=== PATIENT | female | born 1940 | race Caucasian/White ===

== ENCOUNTER 2016-07-23 14:30 | Inpatient (IN) ==
[2016-07-23] MEDS ORDERED: DILAUDID IV ONE (15:58)
[2016-07-23] MEDS ORDERED: PHENERGAN IV ONE (15:59)
[2016-07-23] MEDS ORDERED: SODIUM CHLORIDE 0.9% INJ ONE (15:59)
--- NOTE | 2016-07-23 17:13 | CONSULTATION ---
DATE OF CONSULTATION: 07/23/2016 REASON FOR CONSULT: Left hip fracture. HISTORY OF PRESENTING ILLNESS: Ms. Roberts is a 76-year-old, white female with a history of myasthenia gravis, hypothyroidism and hypertension, who went to hand picker her garbage at the road, and as she was pulling it back, she had an injury, falling and landing on her left hip. After being brought to the emergency department, x-rays were obtained of her hip which revealed a left hip fracture. PAST MEDICAL HISTORY: 1. Myasthenia gravis. 2. Hypothyroidism. 3. Hypertension. PAST SURGICAL HISTORY: Bilateral total knee arthroplasty. FAMILY HISTORY: Noncontributory. SOCIAL HISTORY: She is . She denies using tobacco, denies using alcohol. Her daughter lives with her. REVIEW OF SYSTEMS: Ten point review of systems was performed and the patient answered negative in all except for what was mentioned above in the history of present illness, the pain in her left hip. PHYSICAL EXAMINATION: General: The patient is awake, she is laying in the bed. She answers all questions appropriately. Her daughter's at bedside to assist with answering questions. HEENT: Head is normocephalic, atraumatic. Pupils round, equal, react to light. Nares patent. Throat without exudate. Cardiac: S1-S2 auscultated. No murmur, rub or gallop is noted. Lungs: Clear to auscultation bilaterally in all lung atm. Abdomen: Soft, nontender, nondistended. Bowel sounds present in all quadrants. Genitourinary: Not examined. Neurological: Patient has good sensation to dull touch in all extremities. Cranial nerves 2-12 are grossly intact. Musculoskeletal: On physical examination, the patient has pain in the left hip with palpation of the left hip as well as pain with movement of the left lower extremity. ASSESSMENT: Left femoral neck fracture. PLAN: Discussed the injury with the patient and the fact that we would have to surgically repair it. She agrees and we plan to do a closed reduction with percutaneous pinning using cannulated screws. We will try to do that on 07/24/2016 and discussed the risks, benefits, and alternatives with the patient. The patient agreed to proceed with the surgery. The risks, benefits, and alternatives of the procedure were discussed with the patient including risk of anesthesia, bleeding, infection, damage to blood vessels, nerves, tendons, ligaments, and other imponderables were discussed and the patient agrees to proceed with the surgery at this time. Dictated by HARDEEP Nielson for Sung Srivastava MD cc: HARDEEP Nielson MD
[2016-07-23 17:17] LABS: BASO% 0.2 % (0.0-0.8); EOS# 0.06 X1000 (0.0-0.7); HEMATOCRIT 33.6 % (37.0-47.0); HEMOGLOBIN 11.3 g/dL (12.0-16.0); IMM GRAN# 0.02 X1000 (0.0-0.04); IMM GRAN% 0.3 % (0.0-0.5); LYMPH# 1.18 X1000 (1.2-3.4); LYMPH% 20.4 % (20.5-51.1); MANUAL DIFF NEEDED? NO; MCH 37.2 PG (27-31); MCHC 33.6 g/dL (33-37); MCV 110.5 FL (81-99); MONO# 0.32 X1000 (0.11-0.59); MONO% 5.5 % (1.7-9.3); MPV 10.7 FL (7.4-10.4); NEUT% 72.6 % (42.2-75.2); PLT 232 X1000 (130-400); RBC 3.04 XMIL (4.2-5.4)
[2016-07-23 17:18] LABS: URINE CULTURE NEEDED? NO; URINE MICRO REVIEW NEEDED? NO; URINE SOURCE CATH
[2016-07-23 17:31] LABS: BILIRUBIN URINE NEGATIVE (NEGATIVE); BLOOD URINE NEGATIVE (NEGATIVE); COLOR YELLOW; GLUCOSE URINE NEGATIVE (NEGATIVE); LEUKOCYTES URINE NEGATIVE (NEGATIVE); NITRITE URINE NEGATIVE (NEGATIVE); PROTEIN URINE NEGATIVE (NEGATIVE); SP GRAVITY URINE 1.015; TURBIDITY URINE CLEAR (CLEAR); UR EPITHELIAL CELLS <10 /HPF (<10); URINE BACTERIA NEGATIVE /HPF; URINE RBC <10 /HPF (<10); URINE WBC <10 /HPF (<10); UROBILINOGEN URINE 2 mg/dL (NORMAL)
--- NOTE | 2016-07-23 17:35 | Diag Imaging Result Document ---
PROCEDURE NAME: XRAY HIP UNILATERAL LT - 07/23/2016 LEFT HIP 2 VIEWS: FINDINGS: There is a fracture of the femoral neck. There is no evidence of dislocation. There are no previous studies. IMPRESSION: Left femoral neck fracture.
--- NOTE | 2016-07-23 17:35 | Diag Imaging Result Document ---
PROCEDURE NAME: KNEE 3 VIEWS LEFT - 07/23/2016 LEFT KNEE 3 VIEWS: FINDINGS: There is a knee prosthesis. There is no evidence of fracture, dislocation or prosthetic loosening. Compared to the previous study of 12/06/2011, the diffusion which was present previously has resolved. IMPRESSION: No evidence of acute bony disease.
[2016-07-23 17:36] LABS: ALBUMIN 3.7 g/dL (3.5-5.0); CALCIUM 9.4 mg/dL (8.8-10.2); POTASSIUM 3.6 mmol/L (3.5-5.1); TOTAL BILIRUBIN 0.66 mg/dL (0.20-1.00); TOTAL PROTEIN 6.3 g/dL (6.3-8.3)
--- NOTE | 2016-07-23 17:36 | Diag Imaging Result Document ---
PROCEDURE NAME: CHEST-1 VIEW - 07/23/2016 AP SUPINE CHEST PORTABLE AT 15:47 HOURS: FINDINGS: The aorta is calcified and tortuous. The heart size and pulmonary vascularity are within normal limits. There is no evidence of acute cardiac or pulmonary disease. There are no previous studies. IMPRESSION: No evidence of acute disease.
--- NOTE | 2016-07-23 18:00 | HISTORY AND PHYSICAL ---
HISTORY OF PRESENT ILLNESS: Ms. Roberts was trying to get her trash can back from the curb and she fell and struck her left hip, and by report it looks like a fracture of the left hip. I have not seen the x-ray, just report. So a good deal of pain from her left knee to her left hip. Denies any loss of consciousness. Denies any hard blow to her head. PAST MEDICAL HISTORY: She has myasthenia gravis and she takes medication every day. She also has a history gastroesophageal reflux and osteoarthritis and hypothyroidism. PAST SURGICAL HISTORY: She has had gastric bypass surgery. She has had both knees replaced. She has had back surgery. I think she has had a cholecystectomy by report. ALLERGIES: No known drug allergies other than penicillin. She is not sure what that causes. REVIEW OF SYSTEMS: General: No weight gain or loss. No fever or chills. She has been having trouble keeping weight on. She lost a lot of weight after her gastric bypass surgery and had suffered from some peritonitis, required some more surgery, so she has been about 130 pounds for quite some time. Had been ambulating and very independent. HEENT: Unremarkable. Respiratory: No increased work of breathing or dyspnea. Cardiovascular: No chest pain or tachy palpitation. GI/: No gross hematuria or dysuria. Musculoskeletal/Neurologic: No significant complaints. Endocrinologic/Hematologic: No significant history. FAMILY HISTORY: Noncontributory. Physical Examination: Vital Signs: Temperature 99.0 degrees, pulse 67, respiration is 19, blood pressure 132/55. O2 saturations 100% on room air. HEENT: Pupils are equal, round. Lungs: Clear in all lung tam. Cardiovascular: Regular rhythm and rate without murmur or S3. Abdomen: Soft. Skin: Warm and dry. Weight: 115 pounds. Extremities: Left leg with very little deformity, but it is shorter than the right. Skin is warm and dry. Hurts to any movement. LABS: Pending at this time. Sodium 140, potassium 4.2, chloride 101, bicarb 29, BUN 21, creatinine 1.3. Blood sugar 86. Calcium 9.1, iron 97, total iron binding capacity 234. Ferritin was 110. Liver functions unremarkable. Albumin 3.7. A TSH was 0.54, T4 was 1.05, and cholesterol looked good. Note: This was review of old lab as I do not have her present lab available. This lab was in May 2016. ASSESSMENT AND PLAN: 1. Left intertrochanteric fracture by report. Need to look at the x-rays. We will consult Orthopedic. Plan to admit, give her some pain control. They have given her a little bit of Dilaudid. We will give her some fluid. 2. History of myasthenia gravis. I am going to continue her current medications. I am sure she is on Myostigmin. We need to make sure we have that and continue that treatment. 3. History of gastroesophageal reflux. Aware. 4. History of hypothyroidism. Continue Synthroid. Check T4 and TSH. Continue her present Synthroid 75 mcg a day. 5. Hypertension. Continue present medication. cc: Gume Vazquez MD
[2016-07-23] MEDS ORDERED: DILAUDID IV PRN (18:16)
[2016-07-23] MEDS ORDERED: ZOFRAN IV PRN (18:16)
[2016-07-23 18:44] LABS: INR 1.02; PROTIME 10.7 Seconds (9.2-11.7); PTT 25.9 Seconds (22.0-36.0)
[2016-07-23] MEDS ORDERED: NARCAN ONE (20:36)
[2016-07-23] MEDS: NS 1,000 ML IV SCH (20:44)
[2016-07-23] MEDS ORDERED: NARCAN IV ONE (20:47)
[2016-07-23] MEDS ORDERED: MORPHINE IV ONE (21:05)
[2016-07-23] MEDS: TYLENOL PO PRN (21:27)
[2016-07-23] MEDS: CARAFATE PO SCH (22:30)
[2016-07-24] MEDS: MORPHINE IV PRN ×2 (01:23→08:04)
--- NOTE | 2016-07-24 05:46 | EKG Report ---
Test Performed on : 07/23/2016 4:51:05 PM Test Reason : pre-op Blood Pressure : / mmHG Vent. Rate : 101 BPM Atrial Rate : 101 BPM P-R Int : 170 ms QRS Dur : 138 ms QT Int : 376 ms P-R-T Axes : 068 -44 099 degrees QTc Int : 487 ms Sinus tachycardia. Left axis deviation Left bundle branch block Abnormal ECG When compared with ECG of 16-JUL-2009 11:50, Left bundle branch block is now present Unconfirmed Result
[2016-07-24 06:09] LABS: EOS# 0.03 X1000 (0.0-0.7); EOS% 0.8 % (0.0-10.0); HEMATOCRIT 29.2 % (37.0-47.0); HEMOGLOBIN 9.7 g/dL (12.0-16.0); LYMPH# 0.76 X1000 (1.2-3.4); LYMPH% 21.4 % (20.5-51.1); MANUAL DIFF NEEDED? YES; MCH 36.7 PG (27-31); MCHC 33.2 g/dL (33-37); MCV 110.6 FL (81-99); MONO# 0.24 X1000 (0.11-0.59); MONO% 6.8 % (1.7-9.3); MPV 10.6 FL (7.4-10.4); PLT 196 X1000 (130-400); RBC 2.64 XMIL (4.2-5.4)
[2016-07-24 06:27] LABS: CALCIUM 8.4 mg/dL (8.8-10.2); MAGNESIUM 1.6 mg/dL (1.5-2.7); POTASSIUM 4.5 mmol/L (3.5-5.1); TOTAL BILIRUBIN 0.68 mg/dL (0.20-1.00); TOTAL PROTEIN 5.4 g/dL (6.3-8.3)
[2016-07-24] MEDS: NS 1,000 ML IV SCH ×2 (08:05→15:36)
[2016-07-24] MEDS: IMURAN PO SCH ×2 (08:13→21:30)
[2016-07-24] MEDS: TYLENOL PO PRN ×2 (08:13→15:26)
[2016-07-24] MEDS ORDERED: SYNTHROID PO SCH (09:00)
--- NOTE | 2016-07-24 09:56 | PROGRESS NOTE ---
DATE: 07/24/2016 SUBJECTIVE: She is awake and alert. She said the morphine is working much better for her. With the Dilaudid, they had to give her a little Narcan; it was too strong, last night. Breathing comfortably. No sign of distress. OBJECTIVE: Vital Signs: Afebrile, temperature 98.7 degrees, pulse 64, respirations 16, blood pressure 160/69. HEENT: Pupils are equal, round. Lungs: Clear in all lung tam. Cardiovascular: Regular rate without murmur or S3. Abdomen: Soft. Skin: Warm and dry. URINE OUTPUT: Above 1200 mL. LABORATORY DATA: Reviewed labs from yesterday, hematocrit 29, hemoglobin was 9.7, platelet count 196,000. White blood cell count 3550. Sodium 139, potassium 4.5, chloride 102, bicarb 26, BUN 24 creatinine 1.0. Liver functions unremarkable. IMAGING STUDIES: Chest x-ray, no evidence of acute disease. Hip x-ray, left femoral neck fracture. Knee x-ray, no evidence acute bony injury. ASSESSMENT AND PLAN: 1. Left intertrochanteric hip fracture. Plan is for surgery today, orthopedic. She appears comfortable. 2. History of myasthenia gravis. Make sure she is on her medication. 3. History of gastroesophageal reflux. Aware. 4. History of hypothyroidism, appears to be euthyroid. 5. History of hypertension. PLAN: She has been started back on her home medications. She gets azathioprine or Imuran 50 mg b.i.d., and she takes that for myasthenia gravis. Getting fluid at 85 mL an hour. Losartan 1 a day. Synthroid 75 mcg daily. Her losartan she takes 50/12.5 one a day. cc: Gume Vazquez MD
[2016-07-24] MEDS ORDERED: KEFZOL 1 GM/D5W 1 GM/50 ML IVPB ONE (12:17)
[2016-07-24] MEDS ORDERED: VERSED ONE (13:24)
[2016-07-24] MEDS ORDERED: DIPRIVAN 1% ONE (13:25)
[2016-07-24] MEDS ORDERED: XYLOCAINE-MPF 2% ONE (14:37)
[2016-07-24] MEDS ORDERED: ANESTHESIA PB SET 88 IN 5742 ONE (14:37)
[2016-07-24] MEDS ORDERED: EXTENSION SET 32 IN 4522 ONE (14:37)
[2016-07-24] MEDS ORDERED: LR 1,000 ML ONE (14:37)
--- NOTE | 2016-07-24 15:22 | OPERATIVE NOTE ---
PROCEDURE DATE: 07/23/2016 PREOP DIAGNOSIS: Impacted left femoral neck fracture. POSTOPERATIVE DIAGNOSIS: Impacted left femoral neck fracture. PROCEDURE: Percutaneous pinning, left hip. SURGEON: Sung Srivastava MD. FEEDER SWITCHBOARD OPERATOR: HARDEEP Nielson. ANESTHESIA: Spinal. COMPLICATIONS: None. PROCEDURE IN DETAIL: This 76-year-old female presents for surgical pinning of the left hip. Risks, benefits, and no guarantees were discussed and patient is willing to proceed. She was taken the operating room for fixation of the hip as noted. She was transferred the [facility] after successful spinal. The left hip was prepped and draped in usual sterile fashion. A time- out was taken to confirm operative site, procedure, and patient. Under fluoroscopic guidance, a 1 inch incision was made opposite the lesser trochanter along the lateral thigh. Fluoroscopic guidance was then used to place three 7.3 cannulated screws through the lateral cortex and up the femoral neck and into the central aspect of the femoral head. These were then replaced with three 80 length, partially threaded 7.3 cancellous screws. All 3 had secure fixation in the bone. The guidewire was removed and the C-arm used to verify accurate fracture reduction and hardware placement without joint penetration. The wound was irrigated and closed in layers with 2-0 Vicryl and skin conchis. Sterile dressings completed the closure and the patient was recovered from anesthesia and transferred to the recovery room in stable condition. No intraoperative complications were noted. Instrument count and sponge count was correct at the time of closure. cc: Sung Srivastava MD
[2016-07-24] MEDS: HYZAAR 50/12.5 MG PO SCH (15:25)
[2016-07-24] MEDS: CARAFATE PO SCH ×3 (15:25→17:32)
[2016-07-24] MEDS ORDERED: HALDOL IV PRN (15:29)
[2016-07-24] MEDS ORDERED: MILK OF MAGNESIA PO PRN (15:29)
[2016-07-24] MEDS ORDERED: MORPHINE IV PRN ×2 (15:29→18:52)
[2016-07-24] MEDS ORDERED: ZOFRAN IV PRN (15:29)
[2016-07-24] MEDS: TYLENOL PO SCH (15:36)
[2016-07-24] MEDS: COLACE PO SCH (21:23)
[2016-07-24] MEDS: PERIDEX MT SCH (21:24)
[2016-07-24] MEDS: KEFZOL 1 GM/D5W 1 GM/50 ML IVPB IV SCH (21:32)
[2016-07-25] MEDS: KEFZOL 1 GM/D5W 1 GM/50 ML IVPB IV SCH ×2 (05:14→12:32)
[2016-07-25] MEDS: SYNTHROID PO SCH (06:13)
[2016-07-25 06:20] LABS: HEMATOCRIT 27.1 % (37.0-47.0); HEMOGLOBIN 8.9 g/dL (12.0-16.0)
[2016-07-25 06:42] LABS: AGAP 7; BUN 18 mg/dL (8-22); CALCIUM 8.2 mg/dL (8.8-10.2); CHLORIDE 105 mmol/L (98-107); COSMO 279; POTASSIUM 4.2 mmol/L (3.5-5.1); SODIUM 139 mmol/L (136-145); TCO2 27 mmol/L (25-35)
[2016-07-25] MEDS: TYLENOL PO SCH ×5 (07:40→23:00)
[2016-07-25] MEDS: FERROUS SULFATE PO SCH (08:02)
[2016-07-25] MEDS: PERIDEX MT SCH ×2 (08:02→20:27)
[2016-07-25] MEDS: IMURAN PO SCH ×2 (08:02→20:27)
[2016-07-25] MEDS: HYZAAR 50/12.5 MG PO SCH (08:02)
[2016-07-25] MEDS: NS 1,000 ML IV SCH ×3 (08:06→16:39)
[2016-07-25] MEDS: CARAFATE PO SCH ×3 (08:06→16:43)
[2016-07-25] MEDS: OXY IR PO PRN ×4 (08:09→20:27)
--- NOTE | 2016-07-25 10:24 | PROGRESS NOTE ---
DATE: 07/25/2016 SUBJECTIVE: She is feeling much better. She stated the pain medicine, oxycodone, was working much better. No nausea. She is eating well. She would like to go home with home health. She does not want to go to rehabilitation. She has been to rehabilitation before. She has had a couple times where she thinks she has used [facility] and was very pleased with home health. OBJECTIVE: Vital Signs: Temperature afebrile at 97.8 degrees, pulse 60, respirations 18, blood pressure 170/57. HEENT: The pupils are equal and round. Neck: CVP less than 6 cm. Lungs: Clear in all lung tam. Cardiovascular: Regular rhythm and rate, without murmur or S3. URINE OUTPUT: 1900 mL. LABORATORY: Hemoglobin 8.9 and yesterday it was 9.7. Hematocrit 27 and yesterday was 29. Electrolytes from this morning showed sodium 139, potassium 4.2, chloride 105, bicarbonate 27, BUN 18, creatinine 0.7, blood sugar 113, 105, 89. ASSESSMENT AND PLAN: 1. Postoperative day I believe 2 percutaneous pinning of the left hip. Suffered a fall with intertrochanteric hip fracture. She will continue physical therapy. Would like to go home with home health. Pain control looks good. 2. History of myasthenia gravis. She is on azathioprine. 3. Hypothyroidism, on levothyroxine 75 mcg a day. 4. History of gastroesophageal reflux and gastritis. She is on her Carafate and now the pain control looks good with the oxycodone. I think the risk of anticoagulants is high in her. She is on Imuran, her azathioprine 50 mg p.o. b.i.d. for myasthenia gravis. Social Service is already on. Hope to get her home with home health. cc: Gume Vazquez MD
[2016-07-25] MEDS: COLACE PO SCH (20:27)
[2016-07-26] MEDS: NS 1,000 ML IV SCH ×2 (00:07→03:34)
[2016-07-26] MEDS: OXY IR PO PRN ×2 (00:07→03:10)
[2016-07-26 05:55] LABS: HEMATOCRIT 31.9 % (37.0-47.0); HEMOGLOBIN 10.7 g/dL (12.0-16.0)
[2016-07-26] MEDS: SYNTHROID PO SCH (06:04)
[2016-07-26 07:31] VITALS: BP 164/67
[2016-07-26] MEDS: CARAFATE PO SCH (08:28)
[2016-07-26] MEDS: FERROUS SULFATE PO SCH (08:28)
[2016-07-26] MEDS: TYLENOL PO SCH (08:28)
[2016-07-26] MEDS: IMURAN PO SCH (08:29)
[2016-07-26] MEDS: PERIDEX MT SCH (08:29)
[2016-07-26] MEDS: HYZAAR 50/12.5 MG PO SCH (08:29)
--- NOTE | 2016-07-26 18:01 | DISCHARGE SUMMARY ---
ADMISSION DATE: 07/23/2016 DISCHARGE DATE: 07/26/2016 ADMISSION DIAGNOSES: 1. Left intertrochanteric fracture. 2. History of myasthenia gravis. 3. Gastroesophageal reflux disease. 4. Hypothyroidism. 5. Hypertension. DISCHARGE DIAGNOSES: 1. Left intertrochanteric hip fracture now status post percutaneous pinning of the left hip. 2. History of myasthenia gravis. 3. Hypothyroidism. 4. Gastroesophageal reflux disease. 5. Gastritis. 6. Hypertension which is stable. CONSULTATIONS: Sung Srivastava MD SIGNIFICANT PROCEDURES: On 07/24/[address] Srivastava, left hip percutaneous pinning for impacted left femoral neck fracture. HOSPITAL COURSE: Ms. Angelina Roberts is a 76-year-old female. Apparently she was trying to get her trash can back to her house when she fell and struck her left hip. Imaging revealed a left femoral neck fracture. She denied hitting her head or passing out. Orthopedic surgeon Dr. Srivastava was consulted and on 07/24/2016 she had pinning of the left hip, percutaneously. There were no significant changes in her laboratory data. Her vital signs remained stable throughout and patient wishes to go home with home health. DISCHARGE LABORATORY DATA: Hemoglobin is 10.7, hematocrit 31.9. Chemistries yesterday, she had sodium 139, potassium 4.2, BUN 18, creatinine 0.7 and her glucose was 89. IMAGING: On 07/23/2016, her hip x-ray revealed left femoral neck fracture. The knee x-ray was negative. The chest x-ray was negative. Her EKG shows sinus tachycardia with left axis deviation, a left bundle branch block. Rate was 101 and the QTc was 487. DISCHARGE VITAL SIGNS: Temperature 98.5 degrees, heart rate 67, respiratory rate 14, blood pressure 164/67, O2 saturation was 99%. DISCHARGE MEDICATIONS: She will take oxycodone 5 mg tabs p.o. every 4 hours p.r.n. for pain. She will start Icar 1 tab p.o. daily. Home medications that she will continue: She will continue her Tylenol p.r.n., Azathioprine 50 mg p.o. twice daily. Colace 200 mg p.o. nightly, Synthroid 75 mcg p.o. daily. Hyzaar 50-12.5, 1 tab p.o. daily. Milk of magnesia 30 mL p.o. daily as needed, Carafate 1 g p.o. 3 times a day. DISPOSITION: Home with home health. DISCHARGE INSTRUCTIONS: She will continue with a regular diet. She will have help with home health and family. FOLLOWUP: She will need to follow up with Dr. Srivastava in 2-4 weeks. She will need to follow up with her primary, Dr. Rodriguez. Dictated by HARDEEP Hinojosa for Gume Vazquez MD cc: HARDEEP Hinojosa MD Hiteshri S. Bhavsar, MD John R. Riehl, MD
--- NOTE | 2016-07-30 05:36 | PROVIDER DOCUMENTATION ---
This chart was entered by Filemon Juarez Scribe, acting as scribe for Daljit Cao MD. HPI-Musculoskeletal Pain/Inj - GENERAL Chief Complaint: Fall Stated Complaint: fall Time Seen by Provider: 07/23/16 15:16 Source: patient - HX OF PRESENT ILLNESS-MUSKULOSKELTAL Nature of Presenting Problem: 76 y/o F presents to the ED c/o left hip pain. EMS reports patient falling as she was moving her trash can. patient c/o of left hip pain and is unable to put weight on leg. Denies LOC. Denies syncopal episode and all other symptoms. no other voiced complaints. Quality of Pain: reports: aching Severity in ED: moderate Onset/Duration: just prior to arrival Timing: still present Modifying Factors: worse with: movement Any recent injury?: Yes Locality of [place]: Home Review of Systems - Adult - REVIEW OF SYSTEMS - ADULT Constitutional: denies: chills, fever Eyes: reports: no symptoms reported Ears, Nose, Mouth & Throat: reports: no symptoms reported Cardiovascular: denies: chest pain, palpitations Respiratory: denies: cough, shortness of breath Gastrointestinal: denies: diarrhea, nausea, vomiting Genitourinary: reports: no symptoms reported Musculoskeletal: reports: bone pain (left hip), joint pain (left hip) Integumentary: reports: no symptoms reported Neurological: denies: dizziness/vertigo, headache/migraines Psychiatric: reports: no symptoms reported Endocrine: reports: no symptoms reported Hematologic/Lymphatic: reports: no symptoms reported Allergic/Immunologic: reports: no symptoms reported Past History - Adult - PAST MEDICAL HISTORY-ADULT Review of Records: reports: Nursing Assessment Review, Medications Reviewed Cardiovascular: reports: HTN Gastrointestinal: reports: GERD Musculoskeletal: reports: arthritis Endocrine/Immune: reports: thyroid disorder - PRIOR SURGERIES/PROCEDURES Surgical/Procedure History: reports: orthopedic (extremity) - IMMUNIZATION STATUS Childhood Immunizations: See Nurse Assessment Flu Vaccine: See Nurse Assessment Physical Exam-Injury Related - Physical Exam-Injury Related Initial Vital Signs Reviewed: Yes General Appearance: alert, no apparent distress Eyes: PERRL/EOMI, pink conjunctivae Head, Ears, Nose, Mouth & Throat: moist mucous membranes, normal ENT inspection Neck: full range of motion, normal inspection Respiratory: lungs clear, normal breath sounds, no respiratory distress, no accessory muscle use Cardiovascular: normal peripheral pulses, regular rate, rhythm Abdominal Exam: normal bowel sounds, soft Extremity: normal capillary refill, tenderness (left hip), other (PROM left hip pain) Integumentary: normal color, warm/dry Neurologic: bilingual sales assistant II-XII nml as tested, no motor/sensory deficits Psych/Mental Status: normal mood/affect, oriented x 3 Progress - PLAN OF CARE/RESULTS Progress/Plan/Lab Results: Orders Category Date Time Status Admit - [facility] Routine AdmDCTranf 07/23/16 18:16 Ordered Activity - Strict Bedrest ORDERED Care 07/23/16 18:16 Active Activity - Up with Assistance ORDERED Care 07/23/16 18:16 Active Apply Mechanical Device [QM] ORDERED Care 07/23/16 18:16 Active Consent [Permit for Surgery] NOW Care 07/23/16 18:16 Completed Intake and Output-Strict ORDERED Care 07/23/16 18:16 Completed Vital Signs Order Q 8-HR ASSESS Care 07/23/16 18:16 Completed Social Service Consult Routine Cons 07/23/16 18:16 Active Clear Liquid Diet Diet 07/23/16 16:31 Completed NPO Diet 07/24/16 00:01 Completed KNEE 3 VIEWS LEFT [RAD] Stat Exams 07/23/16 15:16 Completed XRAY HIP UNILATERAL LT [RAD] Stat Exams 07/23/16 15:16 Completed cxr [CHEST-1 VIEW] [RAD] Stat Exams 07/23/16 15:42 Completed CBC WITH DIFF [HEME] Routine Lab 07/24/16 05:20 Completed CBC WITH ELECTRONIC DIFF [HEME] Stat Lab 07/23/16 16:53 Completed CMP [COMPREHENSIVE METABOLIC PANEL] [CHEM] Stat Lab 07/23/16 16:53 Completed COMPREHENSIVE METABOLIC PANEL [CHEM] Routine Lab 07/24/16 05:20 Completed MAGNESIUM [CHEM] Routine Lab 07/24/16 05:20 Completed PROTIME WITH INR [COAG] Stat Lab 07/23/16 16:53 Completed PTT [COAG] Stat Lab 07/23/16 16:53 Completed TSH Routine Lab 07/24/16 05:20 Completed TYPE & SCREEN [BBK] Stat Lab 07/23/16 16:53 Completed UA NIMS W/REFLEX CULT [URINALYSIS] Stat Lab 07/23/16 17:05 Completed 0.9% Sodium Chloride Inj [Ns] 1,000 ml Med 07/23/16 18:16 Discontinued IV 85 mls/hr Acetaminophen [Tylenol] Med 07/23/16 18:16 Discontinued 650 mg PO Q6H PRN PRN Hydromorphone [Dilaudid] Med 07/23/16 18:16 Discontinued 0.5 mg IV Q3H PRN PRN Hydromorphone [Dilaudid] Med 07/23/16 15:58 Discontinued 1 mg IV NOW ONE Levothyroxine [Synthroid] Med 07/24/16 09:00 Discontinued 75 microgm PO DAILY Losartan/Hctz [Hyzaar 50/12.5 mg] Med 07/24/16 09:00 Discontinued 1 each PO DAILY Ondansetron [Zofran] Med 07/23/16 18:16 Discontinued 4 mg IV Q4H PRN PRN Promethazine [Phenergan] Med 07/23/16 15:59 Discontinued 25 mg IV NOW ONE Sodium Chloride 0.9% Med 07/23/16 15:59 Discontinued 10 ml INJ NOW ONE Sucralfate [Carafate] Med 07/23/16 18:16 Discontinued 1 gm PO TID Oxygen Device Routine Oth 07/23/16 18:16 Completed Telemetry [OM.EQ] Routine Oth 07/23/16 18:16 Active EKG [EKG] Stat Ther 07/23/16 16:08 Draft Physical Therapy Eval/Treatment [OM.PT] Routine Ther 07/23/16 18:16 Active Transfer/Admit Order [TRANSFER] Routine Transfer 07/23/16 16:26 Completed Result Diagrams: 07/26/16 05:30 07/25/16 05:30 - EKG 1 Time of EKG reading by physician:: 16:52 EKG Read and Signed by:: Daljit Cao EKG Interpretation (*Must complete 3 of following elements*): Abnormal Rate: 101 Rhythm: sinus tachycardia [place]: left QRS: LBB - XRAY 1 XRAY: Left XRAY Study: Knee Impression: Normal 2 XRAY: Bilateral XRAY Study: Hip Impression: Abnormal XRAY Interpretation: left hx fracture - CONSULTS/PCP/HOSPITALIST Notification #1 *Consult/PCP/Hospitalist*: Dr Atif Time Discussed: 15:57 Consult Disposition: Admit Departure - Departure Time of Disposition Decision: 05:35 DIAGNOSIS: Fracture of femoral neck, left Qualifiers: Encounter type: initial encounter Fracture type: closed Qualified Code(s): S72.002A - Fracture of unspecified part of neck of left femur, initial encounter for closed fracture Disposition: ADMITTED INPATIENT 09 Certified Medical Emergency: Emergent Condition: Good - Critical Care Note This patient required my direct & personal management of CC.: No This chart was documented by the indicated scribe, (Filemon Juarez Scribmaggie) and accurately reflects the services I performed and decisions made by me, Daljit Cao MD, as attested by the provider's signature.
== END 2016-07-26 12:39 | disposition home health service (06) ==
LOC: ED 14:30 → SUATTDRO 18:07 → 4N 18:07
PROVIDERS: ATTEND Emergency Medicine

== ENCOUNTER 2018-08-31 16:31 | Inpatient (IN) ==
[2018-08-31] MEDS ORDERED: NS 500 ML IV ONE (20:58)
--- NOTE | 2018-09-01 01:24 | PROVIDER DOCUMENTATION ---
This chart was entered by Mary Jaramillo Scribe, acting as scribe for Faviola Morales MD. HPI-General Adult - General Chief Complaint: Abnormal Lab[s] Stated Complaint: low H & H Time Seen by Provider: 08/31/18 18:10 Source: patient, family Allergies/Adverse Reactions: Patient Allergies Allergy/AdvReac Type Severity Reaction Status Date / Time Penicillins Allergy Intermediate HEADACHE Verified 02/09/18 20:03 Home Medications: Home Medication List Medication Instructions Recorded Confirmed Last Taken Type Calcium Citrate/Vitamin D 2 tab PO BID 02/10/18 08/31/18 07/29/18 History [Citracal + D] Cholecalciferol (Vitamin D3) 10,000 unit PO BID 02/10/18 08/31/18 07/29/18 History [D3-2000] Multivitamin [Multi-Vitamin Daily] 1 tab PO DAILY 02/10/18 08/31/18 07/29/18 History Zinc 50 mg PO DAILY 02/10/18 08/31/18 07/29/18 History Acetaminophen [Tylenol] 650 mg PO Q6H PRN PRN tablet 05/29/18 08/31/18 07/29/18 Rx Azathioprine [Imuran] 50 mg PO BID tablet 05/29/18 08/31/18 07/29/18 Rx Levothyroxine [Synthroid] 75 microgm PO DAILY@0700 tablet 05/29/18 08/31/18 07/29/18 Rx Sucralfate [Carafate Liquid] 1 gm PO Q6HR udc 05/29/18 08/31/18 07/29/18 Rx Aspirin EC 81 mg PO DAILY 08/31/18 08/31/18 Unknown History Calcium Carbonate [Tums] 300 mg PO Q4H PRN PRN 08/31/18 08/31/18 Unknown History Docusate Sodium [Colace] 100 mg PO BID 08/31/18 08/31/18 Unknown History Hydrocodone/Acetaminophen [[place] 1 ea PO Q6H PRN PRN 08/31/18 08/31/18 Unknown History 7.5-325 Tablet] Loperamide HCl [Imodium A-D] 2 mg PO Q12H PRN PRN 08/31/18 08/31/18 Unknown History Melatonin 3 mg PO QHS 08/31/18 08/31/18 Unknown History Mirtazapine [Remeron] 15 mg PO QHS 08/31/18 08/31/18 Unknown History Ondansetron HCl [Zofran] 4 mg PO Q6H PRN PRN 08/31/18 08/31/18 Unknown History Polyethylene Glycol 3350 [Miralax] 17 gm PO BID 08/31/18 08/31/18 Unknown History Sulfamethoxazole/Trimethoprim 1 ea PO BID 08/31/18 08/31/18 Unknown History [Bactrim Ds Tablet] Trolamine Salicylate 10% Cream 1 applicatn TOP BID 08/31/18 08/31/18 Unknown History [Aspercreme] - History of Present Illness -Gen Adult Nature of Presenting Problems: 78 yof presents w/daughter at bedside w/cc pt sent from [facility] for low H&H. pt daughter sts pt has had trouble w/anemia and stomach ulcers. pt on karafate for ulcers. pt had endoscopy done in may and dr. doyle is pt's gastro. pt recently fell may 25 and broke both legs. pt denies cp, sob, and fever. pt following w oncology Dr. Mccrary for low Hg. Review of Systems - Adult - REVIEW OF SYSTEMS - ADULT Constitutional: reports: no symptoms reported Eyes: reports: no symptoms reported Ears, Nose, Mouth & Throat: reports: no symptoms reported Cardiovascular: reports: no symptoms reported Respiratory: reports: no symptoms reported Gastrointestinal: reports: see HPI Genitourinary: reports: no symptoms reported Musculoskeletal: reports: see HPI Psychiatric: reports: no symptoms reported Past History - Adult - PAST MEDICAL HISTORY-ADULT Review of Records: reports: Old Records Reviewed, Nursing Assessment Review, Medications Reviewed, Social history reviewed & non-contributory. Major Childhood Illnesses: reports: denies history Cardiovascular: reports: HTN Respiratory: reports: denies history Gastrointestinal: reports: GERD, ulcer Obstetrical/Gynecological: reports: denies history Genitourinary: reports: denies history Musculoskeletal: reports: arthritis Neurological: reports: denies history Psychiatric: reports: denies history Endocrine/Immune: reports: thyroid disorder Other Conditions: reports: denies history - PRIOR SURGERIES/PROCEDURES Surgical/Procedure History: reports: cholecystectomy, orthopedic (extremity), joint replacement, gastric bypass - IMMUNIZATION STATUS Childhood Immunizations: See Nurse Assessment Flu Vaccine: See Nurse Assessment - FAMILY HISTORY Family History: reviewed, not pertinent - SOCIAL HISTORY Smoking: non-smoker Substance Use: none/never Physical Exam-General - PHYSICAL EXAM-ADULT Initial Vital Signs Reviewed: Yes - CONSTITUTIONAL General Appearance: alert, thin, other (pale) - EYES Eyes: PERRL/EOMI - HEAD, EARS, NOSE, MOUTH & THROAT HENMT: normocephalic/atraumatic, moist mucous membranes - NECK Neck: non-tender, full range of motion, supple - RESPIRATORY Respiratory: chest non-tender, lungs clear, normal breath sounds - CARDIOVASCULAR Cardiovascular: normal peripheral pulses, regular rate, rhythm, no edema, systolic murmur. negative: no murmur - GASTROINTESTINAL (ABDOMEN) Abdominal Exam: normal bowel sounds, non tender, soft - MUSCULOSKELETAL Back Exam: normal inspection Extremity: normal range of motion, pedal edema (+3 bilat below knees). negative: no pedal edema Peripheral Pulses: dorsalis-pedis (R): 2+, dorsalis-pedis (L): 2+ - SKIN Integumentary: pallor. negative: normal color - NEUROLOGIC Neurologic: grossly normal, no motor/sensory deficits - PSYCHIATRIC Psych/Mental Status: normal thought content, normal thought process Progress - PLAN OF CARE/RESULTS Progress/Plan/Lab Results: Vital Signs - 8 hr 08/31/18 16:38 Temperature 97.9 F Pulse Rate 62 Respiratory Rate 12 Blood Pressure 131/61 O2 Sat by Pulse Oximetry 88 L severe anemia reason unclear, occult blood test (-), will transfuse blood and admit pt. need further investigation for Neutropenia. - CONSULTS/PCP/HOSPITALIST Notification #1 *Consult/PCP/Hospitalist*: [employer] Time Discussed: 18:41 Consult Disposition: Admit (pt hx discussed and pt accepted) Departure - Departure Date of Disposition Decision: 08/31/18 Time of Disposition Decision: 18:35 DIAGNOSIS: Severe anemia Neutropenia Qualifiers: Neutropenia type: unspecified Qualified Code(s): D70.9 - Neutropenia, unspecified Disposition: ADMITTED INPATIENT 09 Certified Medical Emergency: Emergent Condition: Stable - Critical Care Note This patient required my direct & personal management of CC.: No Attestation - Physician/ ABRAN Attestation Patient care was provided by Advanced Practice Provider:: No The physician spent face to face time with patient:: Yes Advanced Practice Provider documentation review:: Supervising physician onsite and consulted in the evaluation and care of this patient. The physician did have a face to face encounter with the patient. This chart was documented by the indicated scribe, (Mary Jaramillo Scribe) and accurately reflects the services I performed and decisions made by me, Faviola Morales MD, as attested by the provider's signature.
[2018-09-01] MEDS ORDERED: CARAFATE LIQUID PO SCH (03:00)
[2018-09-01] MEDS ORDERED: SODIUM CHLORIDE 0.9% INJ SCH (03:00)
[2018-09-01] MEDS ORDERED: ZOFRAN IV PRN (03:13)
[2018-09-01] MEDS: PROTONIX IV SCH ×3 (03:36→22:07)
--- NOTE | 2018-09-01 05:33 | Diag Imaging Result Doc PS360 ---
EXAM: ELBOW COMPLETE LEFT HISTORY: Left Elbow Pain/Swelling TECHNIQUE: Left elbow, three views COMPARISON: None. FINDINGS: No fracture. No dislocation. No other bony abnormality. There is soft tissue swelling about the elbow. IMPRESSION: Soft tissue swelling, but no bony abnormality. Electronically signed by Emanuel De La Paz 09/01/2018 5:31 AM
[2018-09-01 05:47] LABS: BASO# 0.01 X1000 (0.0-0.2); BASO% 0.6 % (0.0-0.8); EOS# 0.17 X1000 (0.0-0.7); EOS% 10.6 % (0.0-10.0); HEMATOCRIT 30.8 % (37.0-47.0); HEMOGLOBIN 10.7 g/dL (12.0-16.0); IMM GRAN# 0.05 X1000 (0.0-0.04); IMM GRAN% 3.1 % (0.0-0.5); LYMPH# 0.91 X1000 (1.2-3.4); LYMPH% 56.9 % (20.5-51.1); MCH 32.8 PG (27-31); MCHC 34.7 g/dL (33-37); MCV 94.5 FL (81-99); MONO# 0.07 X1000 (0.11-0.59); MONO% 4.4 % (1.7-9.3); MPV 12.3 FL (7.4-10.4); NEUT% 24.4 % (42.2-75.2); PLT 64 X1000 (130-400); RBC 3.26 XMIL (4.2-5.4); RDW 17.9 % (11.5-14.5)
[2018-09-01 05:48] LABS: NEUT# 0.39 X1000 (1.4-6.5)
[2018-09-01 05:49] LABS: INR 0.99; PROTIME 13.9 Seconds (11.0-16.0)
[2018-09-01 05:50] LABS: PTT 46.5 Seconds (22.3-41.8)
[2018-09-01 06:08] LABS: AGAP 8; ALB/GLOB RATIO 0.7; ALBUMIN 1.7 g/dL (3.5-5.0); ALKALINE PHOSPHATASE 108 U/L (32-104); BUN 41 mg/dL (8-22); CALCIUM 7.8 mg/dL (8.8-10.2); CHLORIDE 114 mmol/L (98-107); COSMO 286; CREATININE 1.5 mg/dL (0.5-0.9); ESTIMATED GFR 34; GLUCOSE 75 mg/dL (70-104); GOT 14 U/L (10-30); GPT 5 U/L (10-36); POTASSIUM 4.2 mmol/L (3.5-5.1); SODIUM 139 mmol/L (136-145); TCO2 17 mmol/L (25-35); TOTAL BILIRUBIN 0.67 mg/dL (0.20-1.00); TOTAL IRON 76 ug/dL (49-151); TOTAL PROTEIN 4.1 g/dL (6.3-8.3); UNBOUND IRON < 1 ug/dL (112-346)
[2018-09-01] MEDS: CARAFATE LIQUID PO SCH ×3 (06:37→18:02)
[2018-09-01] MEDS: SYNTHROID PO SCH (06:37)
[2018-09-01 07:14] LABS: FERRITIN 1741 ng/mL (13-150)
[2018-09-01 07:26] LABS: URINE SOURCE CATH
[2018-09-01 07:32] LABS: BILIRUBIN URINE SMALL (NEGATIVE); BLOOD URINE TRACE (NEGATIVE); COLOR YELLOW; GLUCOSE URINE NEGATIVE (NEGATIVE); KETONE URINE NEGATIVE (NEGATIVE); LEUKOCYTES URINE NEGATIVE (NEGATIVE); NITRITE URINE POSITIVE (NEGATIVE); PROTEIN URINE TRACE mg/dL (NEGATIVE); SP GRAVITY URINE 1.019; TURBIDITY URINE CLEAR (CLEAR); UROBILINOGEN URINE NORMAL (NORMAL)
[2018-09-01 07:34] LABS: UR EPITHELIAL CELLS <10 /HPF (<10); URINE BACTERIA 4+ /HPF; URINE RBC <10 /HPF (<10); URINE WBC <10 /HPF (<10)
[2018-09-01] MEDS: CLINDAMYCIN 600 MG/D5W 600 MG/50 ML IVPB IV SCH ×2 (08:54→18:02)
[2018-09-01] MEDS: CULTURELLE PO SCH ×2 (08:54→20:24)
[2018-09-01 12:03] LABS: RETIC% 0.72 % (0.8-2.1); RETIC-HE 35.3 PG (28.2-36.6)
--- NOTE | 2018-09-01 13:27 | HEMO/ONC CONSULTATION ---
DATE: 09/01/2018 CHIEF COMPLAINT: We have been consulted for the patient regarding her history of anemia. HISTORY OF PRESENT ILLNESS: We follow the patient in the clinic for macrocytic anemia and leukopenia. She also has a history of myasthenia gravis and is on azathioprine. She also has a history of gastric bypass. This past May she broke bilateral femurs and it was discovered that she had bleeding gastric ulcers during her hospitalization. She has been since sent to [facility]. She has been followed by Dr. Dash who placed her on Sucralfate and Protonix. They have been watching her hemoglobin and hematocrit at [facility] while she has been on Lovenox. [facility] states that her hemoglobin had dropped to 5.8 in her clinic. She was subsequently with sent to the ER for evaluation and possible blood transfusion. PAST MEDICAL HISTORY: Includes myasthenia gravis, hypothyroidism, microcytic anemias, leukopenia. PAST SURGICAL HISTORY: Gastric bypass, cholecystectomy, bilateral knee replacements, disk surgery. SOCIAL HISTORY: The patient denies smoking, alcohol, or substance abuse. ALLERGIES: Penicillin. HOME MEDICATIONS: Azathioprine, baby aspirin, calcium carbonate, calcium citrate with vitamin D, vitamin D 3 Colace, [place], Synthroid, Imodium AD, melatonin, mirtazapine, a multivitamin, Zofran MiraLAX, Sucralfate. REVIEW OF SYSTEM: Has been negative except per HPI. PHYSICAL EXAM: Vital Signs: Temperature 98.2 degrees, heart rate 73, respiratory rate 16, blood pressure 110/53, O2 saturation 97% on 2 L via nasal cannula. Pain 3/10, generalized. General: The patient appears weak and very frail. She uses a wheelchair to get around. Eyes: Anicteric. Pupils are equal, round, and symmetric. Pale conjunctivae. ENT: Oral mucosa pale and dry. Cardiovascular: S1, S2. Respiratory: Chest is clear to auscultation. Normal respiratory effort. Musculoskeletal: The patient is wheelchair bound. Bilateral knee replacement. Weak Quadriceps. Skin: Right arm, severe edema, mild weeping. LABORATORY: WBCs 1.6, hemoglobin 10.7, hematocrit 30.8, platelet count 64,000, ANC 0.39, creatinine 1.5. ASSESSMENT: 1. Iron deficiency anemia. The patient is continuing to lose blood most likely by a gastrointestinal blood loss. She is status post 2 blood transfusions in the hospital. We will continue to monitor her hemoglobin and hematocrit closely. 2. History of gastric bypass. The patient should continue supplements as discussed. This causes malabsorption of oral iron. Therefore if iron as needed she will need IV iron. The patient is intolerant to oral iron. 3. Gastrointestinal bleeding. Please consult Dr. Dash to evaluate the patient. Dictated by HARDEEP Brooke for Atilio Mccrary MD Patient seen and examined. As above. Patient known to us for leukopenia and macrocytic anemia. She has a history of myasthenia gravis and has been on azathioprine in the past. She has a history of gastric bypass and iron malabsorption. She has received IV iron last in 11/2016. Recently she was admitted with bilateral femur fractures. She also developed anemia and Dr. Dash performed EGD. She was noted bleeding gastric ulcers. She since that admission she has been in [facility] we have. She was noted to have pancytopenia at the [facility] and was admitted through the ER. Hemoglobin was substantially low and GI has been consulted. She also has significant leukopenia and neutropenia along with thrombocytopenia. I suspect this is most likely due to bone marrow suppression. We will check labs and follow her along with you. It is reasonable to consider Neupogen for a brief period of time. Continue to transfuse as needed. We will stop suspect medications. I will follow her along with you. Atilio Mccrary M.D. cc: Atilio Mccrary MD [facility]
[2018-09-01] MEDS: PRECARE PO SCH (14:47)
[2018-09-01] MEDS: SANTYL OINT TOP SCH (14:47)
--- NOTE | 2018-09-01 15:19 | CONSULTATION ---
DATE OF CONSULTATION: 09/01/2018 LOCATION: [facility] bed 2. HISTORY OF PRESENT ILLNESS: Ms. Roberts is 78 years old. She has longstanding myasthenia gravis treated chronically with azathioprine 50 mg b.i.d. She has generally tolerated that management. Serial CBCs have shown slightly low and borderline normal counts. She presented this time with remarkably reduced counts and pancytopenia. Myasthenia was diagnosed in 2009 with typical facial features and weakness around the eyes. She had a short course with pyridostigmine and had diarrhea which improved with addition of glycopyrrolate. Eventually, she was stable with azathioprine and preferred not to continue pyridostigmine long-term. I believe she has not taken pyridostigmine in several years. When she was last seen in my office, we had suggested low-dose pyridostigmine but she was reluctant to take that, possibly because of concerns it might aggravate her ulcer condition. She presents this time with WBC 1,310, hemoglobin 5.8, hematocrit 18%, platelet count 64,000. All of these are substantially below her baseline levels. There were some minor metabolic findings including BUN 41, calcium 7.8. She was undergoing vascular studies when I rounded and I did not examine her limb muscle strength. Her voice was strong. She is awake, alert, and attentive. She has good vertical and lateral eye movement. There was not ptosis. Facial motility seemed symmetric and appropriate. IMPRESSION: Myasthenia gravis, remarkably stable course over at least 9 years since diagnosis. I agree with stopping azathioprine in light of her pancytopenia. I will be interested in hearing what Dr. Mccrary thinks about the etiology of her low blood counts. We briefly discussed some alternate immune system management options including Soliris, Rituxan. I do not think either of these needs to be started urgently. I encouraged her to keep an open mind and to consider at least trying a low dose of pyridostigmine for symptomatic management. Further plans will depend on her clinical course. Thanks for asking Neurology to see Ms. Roberts. cc: MD RADHA Blas III
[2018-09-01 15:24] LABS: HEMATOCRIT 31.6 % (37.0-47.0); HEMOGLOBIN 10.5 g/dL (12.0-16.0)
--- NOTE | 2018-09-01 16:24 | GASTROENTEROLOGY CONSULTATION ---
DATE: 09/01/2018 REASON FOR CONSULTATION: Anemia, history of GI bleed, gastric ulcers. HISTORY OF PRESENT ILLNESS: This is a 78-year-old female, known to our practice. We had last seen her in the office in June. She was following up at that time for follow-up from her hospitalization in May. At that time, she was in the hospital with GI bleed. She had also fallen and fractured her legs and had to be transferred to [facility] for orthopedic surgery once her GI bleed was stable. She had an EGD on 05/26/2018 that showed gastrojejunal ulcers x2 and surgical changes of gastric bypass surgery. The patient is still taking Protonix and Carafate. She had been taking NSAIDs prior to the GI bleeding. Those have been avoided, but she was started on Lovenox. She had been following with Dr. Mccrary for anemia. She has received blood transfusions since her hospitalization in May. At the time of our evaluation in the office in June, she had denied any visible blood in the stool or black stools. She is residing at [facility]. Her daughter is currently at the bedside. At the time of my evaluation, she still reports that there is no visible active bleeding. The patient also takes Imuran for history of myasthenia gravis. She is followed by Dr. Ibrahim. He has seen the patient on consultation, and currently Imuran is on hold. Her white blood cell count is decreased. The patient currently denies abdominal pain. She has had some problems with left arm swelling and lower extremity edema. Patient's daughter states she was given antibiotics for possible cellulitis by Dr. Alva last week. Patient's current hemoglobin and hematocrit after 2 units of packed red blood cells are 10.7 and 30.8. On admission her hemoglobin was 5.8 and hematocrit 18.0. Historically on August 07, her hemoglobin was 8.7 and hematocrit 26.3. Historically her WBC count on 07/09/2018 was 2.65. On 07/21/2018, WBC was 4.01. This admission her WBC is 1.60, and platelet count is 64,000. PAST MEDICAL HISTORY: Myasthenia gravis, hypertension, hypothyroidism, history of gastric ulcers, history of anemia and leukopenia. PAST SURGICAL HISTORY: Gastric bypass, cholecystectomy, bilateral knee replacement, appendectomy. ALLERGIES: Allergies to penicillin causing headaches. HOME MEDICATIONS: Tylenol 650 mg every 6 hours as needed. Aspirin 81 mg daily. Imuran 50 mg twice a day. Calcium 300 mg every 4 hours as needed. Calcium plus vitamin D 2 tablets twice a day. Vitamin D3 of 10,000 units twice a day. Colace 100 mg twice a day. [place] 7.5/325, every 6 hours as needed. Synthroid 75 mcg daily. Imodium 2 every 12 hours as needed. Melatonin 3 mg every night. Remeron 15 mg every night. Multivitamin daily. Zofran as needed. MiraLAX 17 g twice a day. Carafate 1 g every 6 hours. Bactrim DS 1 twice a day. Aspercreme twice a day. Zinc 50 mg daily. SOCIAL HISTORY: Denies tobacco, alcohol, alcohol use. She has been residing at [facility]. REVIEW OF SYSTEMS: Per History of Present Illness. PHYSICAL EXAMINATION: Vital Signs: Temperature 98.2 degrees, pulse 73, respirations 16, blood pressure 110/53. At the time of my evaluation, patient was drowsy, but she did arouse and was in no acute distress. She is complaining of being cold. HEENT: Normocephalic atraumatic. Pupils equal, round, and reactive to light. Respiratory: Lung sounds essentially clear. Abdomen: Soft, nontender. Positive bowel sounds. Extremities: She has redness and swelling, worse to the left arm. She has bilateral lower extremity edema noted. LABORATORY: Hematology: WBC 1.60, hemoglobin 10.5, hematocrit 31.6. MCV 94.5, platelets 64,000. Coagulation: Pro-time 13.9, INR 0.99, PTT 46.5. Chemistry: Sodium 139, potassium 4.2, chloride 114, CO2 of 17, BUN 41, creatinine 1.5, glucose 75, calcium 7.8. Iron 76, percent saturation not reportable, ferritin 1741. Total bilirubin 0.67, AST 14, ALT 5, alkaline phosphatase 108. Vitamin B12 of 1253, folate 3.9. ASSESSMENT AND PLAN: 1. Severe anemia. Patient has had packed red blood cells. Etiology multifactorial. Patient has had history of GI ulcers and is currently on Carafate and Protonix. Continue those. There has been no active GI bleeding noted. We had planned to repeat her EGD in September. 2. 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 Patient has been on Imuran for myasthenia gravis for years. That is currently on hold, and patient has been seen by Dr. Ibrahim. Follow his recommendations. 3. Vitamin deficiency. Would recommend starting a vitamin for now. Patient follows with Dr. Mccrary. Continue to follow their recommendations. Patient currently is not having any active bleeding. We will continue to monitor hemoglobin and hematocrit. Transfuse packed red blood cells as needed. Further plans will be made according to her progress. Do not recommend proceeding with EGD at present time. Further plans to be made according to her other workup. Thank you for this consultation. I have discussed this case with Dr. Dash. Dictated by HARDEEP Nicolas for Jose Dash MD cc: HARDEEP Flores MD [facility]
--- NOTE | 2018-09-01 16:26 | PROGRESS NOTE ---
DATE: 09/01/2018 INTERVAL HISTORY: The patient with appropriate increase in blood counts, status post transfusion. Still no signs or symptoms of active bleeding. No new complaints. No acute events overnight. REVIEW OF SYSTEMS: Twelve point review of systems negative as per interval history. LABORATORY: Initial hemoglobin 5.8, repeat is posttransfusion 10.7, repeat after that 10.5. WBC 1.6, platelets 64,000, chloride 114, bicarb 17, BUN 41, and creatinine 1.5. Ferritin 1741, iron 76, TIBC not reportable, but on saturated less than 1, alkaline phosphatase 108, BNP 4300, total protein 4.1, albumin 1.7, B12 1253, and folate 3.9. VITALS: T-max 98.2 degrees, pulse 73, respirations 16, blood pressure 110/53, and O2 saturation 97% on 2 L by nasal cannula. PHYSICAL EXAMINATION: General: No acute distress. Vitals: As above. HEENT: Normocephalic, atraumatic. Slightly dry mucous membranes. No cervical adenopathy. Cardiovascular: Regular rate and rhythm. No murmurs, rubs or gallops. Pulmonary: Clear to auscultation bilaterally. No wheezing or rhonchi. Abdomen: Soft, nontender, and nondistended. Bowel sounds positive. Extremities: Peripheral pulses intact 3+ lower extremity pitting edema in both lower legs. Mild edema left upper extremity. Slight tenderness of both elbow and left antecubital fossa. Neurologic: Speech is slightly slow and stuttering, but relatively clear. Cranial nerves otherwise intact. Globally weak. No new focal deficits identified. Psychiatric: Awake, alert, and cooperative. Normal mood and affect. Skin: Edema as above. Otherwise, no new rash or lesions identified. ASSESSMENT AND PLAN: 1. Pancytopenia, etiology uncertain. Patient with history of peptic ulcer disease and iron deficiency anemia, but patient with no signs or symptoms of active bleeding on this go around. Iron studies not really consistent with deficiency with patient with adequate ferritin and no unsaturated iron. Iron deficiency would also not explain her leukopenia and thrombocytopenia. Could be related to her home Imuran, which we will hold for now. Could also be primary bone marrow issue such as myelofibrosis. We will ask for Hematology opinion. Good response to initial 2 unit transfusion. Appears to be roughly stable on recheck this afternoon. Continue monitoring blood counts. Folate B12 was adequate, but folate was slightly low, so we will replete. The patient is status post gastric bypass so if folate does improve, could end up needing IV replacement. 2. Possible acute kidney injury, patient appears to have baseline creatinine of 0.9 up to 1.5 currently. BUN elevated with slightly dry mucous membranes despite significant edema. Suspect at least intravascularly depleted. Give some fluids and monitor closely. 3. Limb edema. Suspect this is due to prolonged poor p.o. intake with profound hypoalbuminemia with albumin of 1.7. The family confirms poor p.o. intake for quite some time. She does have elevated BNP. We will obtain echocardiogram and limb ultrasounds. The patient has been largely immobile for the last 2 months, so some concern for DVT, but considered less likely given symmetry. some tenderness and slight erythema of the left elbow. We will continue antibiotics with clindamycin for possible cellulitis. 4. Myasthenia gravis. Patient stable on Imuran at home. Holding currently as it may be contributing to her pancytopenia. Neurology consulted to ask for recommendations regarding Imuran therapy for recommendations regarding holding Imuran therapy and possible alternatives. 5. Hypothyroidism. Continue home Synthroid. 6. GERD, on PPI for potential GI bleed as above. 7. Protein calorie malnutrition, likely severe. Patient with profoundly low albumin. Poor p.o. intake for a prolonged time. We will see how she does with diet here, but may end up needing to start tube feeds or TPN. Discussed with family that if she has continued poor p.o. intake, then that would have a very poor long-term prognosis. RADHA
--- NOTE | 2018-09-01 23:18 | HISTORY AND PHYSICAL ---
PRIMARY CARE PROVIDERS: Dr. Eugenio Alva, at [facility]. CHIEF COMPLAINT: Abnormal labs. HISTORY OF PRESENT ILLNESS: Ms Roberts is a 78-year-old, female who was just recently discharged from our facility on 05/29/2018, during this admission, she was treated for iron deficiency anemia, GERD, and gastric ulcer disease. On EGD performed by Dr. Jose Dsah, she was found to have gastrojejunal ulcers x2 as well as surgical changes suggestive of gastric bypass surgery. It was noted that the ulcers did not have any stigmata of recent bleeding, and there was no evidence of active bleeding now. She was given a blood transfusion, her hemoglobin and hematocrit did improve. The patient was able to tolerate clear liquids and was sent to [facility] for repair of bilateral femur fractures that occurred from a fall, it sounds to be prior to this admission, and went to rehab at [facility], and has been there since. The patient, at this time, really does not report any complaints, other than she has some left elbow pain. The patient does appear to be elderly, weak, and frail. Though, she is alert and oriented to person, place, time, and situation. She did know she was in the hospital, but thought it was [facility] instead of [facility], though other than this, she was able to answer questions appropriately and follow commands. The patient denies any headache, dizziness, shortness of breath, cough, or chest pain. She denies any abdominal pain, nausea, vomiting, or diarrhea. She denies any hematemesis, hematochezia, or melena. She denies any dysuria or urinary frequency. The patient does not complain of any pain in her extremities, except for the previously mentioned left elbow. She does have bilateral lower extremity edema as well as dependent edema noted all the way up to her back. She probably has 3 to 4+ pitting edema noted in her bilateral lower extremities, though there is no warmth or erythema noted. The left elbow from mid forearm up to the mid humeral area, she does have erythema, warmth, pain, and tenderness noted. The patient does have capillary refill less than 3 as well as pulse, motor, and sensory that is intact distal to the area of swelling and erythema. Her family member at bedside states that at the half-way they had diagnosed her with cellulitis, and that she has been taking antibiotic of Bactrim for this. Upon evaluation in the ER, the patient was noted, as previously mentioned, to have hemoglobin that was. 5.8 on 08/31/2018 at 7:09 a.m., and a hematocrit of 18. She also did have chemistries that were previously drawn prior to arrival to hospital which showed a creatinine of 1.5, BUN 40, and a GFR 34. They did perform a Hemoccult stool in the ER, which was negative for any blood. Given her left elbow swelling and symptoms, we did perform a left complete elbow x-ray which showed soft tissue swelling but no bony abnormality. The patient will be placed for inpatient admission for treatment of her anemia as well as possible gastrointestinal bleeding and left upper extremity cellulitis. REVIEW OF SYSTEMS: A 14-point review of systems was conducted with the patient and all were negative, except for pertinent positives mentioned above HPI. PAST MEDICAL HISTORY: 1. Myasthenia gravis. 2. Iron-deficiency anemia. 3. Hypothyroidism. 4. Gastroesophageal reflux disease. 5. Hypertension. 6. Gastric ulcers. PAST SURGICAL HISTORY: 1. Left hip surgery. 2. Gastric bypass in 2005. 3. Bilateral knee replacement. 4. Back surgery. 5. Right wrist surgery. 6. Right leg surgery. 7. I believe she did undergo surgical repair recently at [facility] for a right and left distal femur fracture due to a fall. She was sent to rehab at [facility] after being discharged. SOCIAL HISTORY: There is no known tobacco, alcohol, or illicit drug use. Previous to her most recent admission and being placed at rehab upon discharge, she did live with her daughter, who is her power of [place] attorney. FAMILY HISTORY: Positive for her mother having diabetes and pancreatic tumor. Her father had chronic kidney disease and, apparently, from [place] spotted fever. ALLERGIES: Patient has allergies to penicillin, but the only reported allergic symptoms is a headache, which claimed to have been a migraine-type headache. HOME MEDICATIONS: 1. Aspirin enteric-coated 81 mg p.o. daily. 2. Imuran 50 mg p.o. b.i.d. 3. [*] mg p.o. q.4 hours p.r.n. 4. Citracal plus vitamin D 2 tablets p.o. b.i.d. 5. Vitamin D3, 2000 units p.o. b.i.d. 6. Colace 100 mg p.o. b.i.d. 7. Siss[place] 7.5 mg, 1 tablet p.o. q.6 hours p.r.n. 8. Levothyroxine 75 mcg p.o. daily. 9. Imodium 2 mg p.o. q.12 hours p.r.n. for diarrhea. 10. Melatonin 3 mg p.o. at bedtime. 11. Remeron 15 mg p.o. at bedtime. 12. Multivitamin 1 tablet p.o. daily. 13. Zofran 4 mg p.o. q.6 hours p.r.n. nausea. 14. MiraLAX 17 g p.o. b.i.d. 15. Carafate liquid 1 g p.o. q.6 hours. 16. Bactrim DS 1 tablet p.o. b.i.d. 17. Aspercreme 1 application topically b.i.d. 18. Zinc 50 mg p.o. daily. DIAGNOSTIC DATA/LABORATORY RESULTS: White blood cell count is 1.31, hemoglobin 5.8, hematocrit 18, platelet count is 89,000. Sodium 141, potassium 4.3, chloride is 113, serum bicarbonate is 20, BUN 40, creatinine 1.5, GFR 34, glucose 76, calcium 8. X-ray left elbow showed soft tissue swelling but no bony abnormality. PHYSICAL EXAMINATION: VITAL SIGNS: Temperature in 97.6, heart rate 85, respirations 13, blood pressure is 102/56, oxygen saturation is 94% nasal cannula at 2 L. GENERAL: Ms. Roberts is a very pleasant, elderly, frail, ill-appearing 78-year-old female. She was resting in the ER stretcher. She was in no acute distress. She was awake, alert, and able to answer questions appropriately. HEENT: Head is atraumatic, normocephalic. Pupils are equal, round, reactive to light, were 3 mm bilaterally and brisk. Subconjunctivae were slightly pale. Oral mucosa is slightly dry. NECK: Supple. Trachea midline. CARDIOVASCULAR: Patient has S1, S2 present. No murmurs, gallops, rubs appreciated with a regular rate and rhythm. PULMONARY: Patient has symmetrical chest expansion bilaterally. Lung sounds are clear to auscultation bilateral full tam. ABDOMEN: Soft, does not appear to be distended. The patient does have a protuberant abdomen noted. Bowel sounds are present in all 4 quadrants, were normoactive. She is nontender upon palpation. The patient did have dependent edema noted along bilateral flanks all the way up to her upper back. EXTREMITIES: No cyanosis noted, though the patient does have 3 to 4+ pitting edema noted in bilateral lower extremities. She does have erythema, warmth, swelling, pain and tenderness noted to the left elbow area from approximately mid forearm to mid humerus. Though pulse motor and sensory is intact in all extremities, radial pulses and pedal pulses were intact. Radial pulses were easily palpated, though pedal pulses, due to swelling, did have to be obtained with venous Doppler, but both dorsalis pedis and posterior tibialis were obtained. INTEGUMENTARY: The patient's skin is pale, dry, and intact except for above abnormalities mentioned in previous extremities exam about her elbow. NEUROLOGICAL: The patient is alert and oriented to person, place, time, and situation. She was able to answer questions and follow commands appropriately. The only things that she thought she was at [facility] instead of [facility]. She is able to move all extremities though and does have generalized weakness noted. The patient does not have any focal neurological deficits noted at this time. ASSESSMENT AND PLAN: 1. Pancytopenia. The patient does have a low white blood cell count as well as low hemoglobin and hematocrit. We will go ahead and obtain an anemia profile. She does have a history of iron-deficiency anemia as well as a recent gastrointestinal bleed, though at this time, she does not appear to have any signs of active bleeding. She has not had any hematemesis, hematochezia, or melena. Occult stool was negative. She also denies any abdominal pain, nausea, vomiting, or diarrhea. She is receiving 2 units of packed red blood cells. We will recheck a CBC for re-evaluation and await results of anemia profile. Concerning her pancytopenia, the patient does take Imuran, this could be contributing to this. There is a possible source of infection which could be her cellulitis in her left elbow. We will go ahead and obtain blood cultures as well as a urinalysis and urine culture, if needed. We have placed her on antibiotics of clindamycin for her cellulitis. We will continue to follow this closely. 2. Recent history of gastrointestinal bleed. We will continue with treatment as mentioned above in #1. We have placed a consult with Dr. Dash with Gastroenterology. We will await their evaluation and further recommendations for management. We have continued her care and we will place her on Protonix 40 mg IV q.12 hours. We will transfuse as necessary and await their evaluation. 3. Possible left upper extremity cellulitis. The patient has been diagnosed with this previously at the half-way. She was taking antibiotic of Bactrim, though her family member at bedside states that the harm has not been getting better, that her symptoms have actually worsened. We did obtain an x-ray, which showed some soft tissue swelling, though no other acute abnormalities. We will route a possible deep venous thrombosis as well. We have ordered a venous Doppler of left upper extremity in the morning. We will continue with antibiotics of clindamycin. She has been placed on Culturelle as well. We will continue to follow. 4. Acute kidney injury. The patient's previous creatinine during her most recent admission was 1.1. This is of uncertain etiology. The patient does possibly seem slightly volume depleted. She does have dry oral mucosa, though does have dependent edema noted in bilateral flanks and 3 to 4+ pitting edema noted in her bilateral lower extremities. She is receiving normal saline with the blood as well as the 2 units of blood, this will provide some intravascular volume. We will continue this right now and we will re-evaluate her fluid volume status in the morning. We will avoid nephrotoxic medications and renally dose medications as necessary. 5. History of myasthenia gravis. The patient has been Imuran, though at this time, is having pancytopenia. We will hold this medicine and continue to follow. 6. Deep vein thrombosis prophylaxis provided with sequential compression devices. She has been placed on CIC with telemetry. We will have vital signs every 4 hours per CIC protocol, with strict intake and output, incentive spirometry. We will keep her NPO at this time until she is evaluated by Gastroenterology. We will repeat a CBC, CMP in the morning. We have also placed orders for a urinalysis. Further orders and recommendations pending hospital course, diagnostic studies, and physician evaluation. Dictated by HARDEEP Argueta for Estuardo Del Angel MD cc: Estuardo Del Angel MD
[2018-09-02] MEDS: CARAFATE LIQUID PO SCH ×5 (01:14→19:27)
[2018-09-02] MEDS: SYNTHROID PO SCH ×2 (05:57→06:12)
[2018-09-02] MEDS: CLINDAMYCIN 600 MG/D5W 600 MG/50 ML IVPB IV SCH ×3 (05:58→22:11)
[2018-09-02 06:27] LABS: BASO# 0.01 X1000 (0.0-0.2); BASO% 0.5 % (0.0-0.8); EOS# 0.16 X1000 (0.0-0.7); EOS% 7.3 % (0.0-10.0); HEMATOCRIT 35.1 % (37.0-47.0); HEMOGLOBIN 12.1 g/dL (12.0-16.0); IMM GRAN# 0.15 X1000 (0.0-0.04); IMM GRAN% 6.8 % (0.0-0.5); LYMPH# 1.43 X1000 (1.2-3.4); LYMPH% 65.3 % (20.5-51.1); MCH 32.4 PG (27-31); MCHC 34.5 g/dL (33-37); MCV 93.9 FL (81-99); MONO# 0.08 X1000 (0.11-0.59); MONO% 3.7 % (1.7-9.3); MPV 11.4 FL (7.4-10.4); NEUT% 16.4 % (42.2-75.2); PLT 85 X1000 (130-400); RBC 3.74 XMIL (4.2-5.4); RDW 18.4 % (11.5-14.5); WBC 2.19 X1000 (4.8-10.8)
[2018-09-02 06:30] LABS: NEUT# 0.36 X1000 (1.4-6.5)
[2018-09-02 06:34] LABS: CALCIUM 7.7 mg/dL (8.8-10.2); CREATININE 1.4 mg/dL (0.5-0.9); POTASSIUM 4.6 mmol/L (3.5-5.1)
--- NOTE | 2018-09-02 07:41 | Extremity Venous Study ---
PROCEDURE NAME: Venous U/S Left Arm - 09/01/2018 REQUESTING PHYSICIAN: Dr. Laws. ENTRY LEVEL INSTALLATION TECHNICIAN: Kristen. INDICATIONS: Edema, pain, and redness to left arm. EQUIPMENT: [employer] Vivid E9 ultrasound system with a 9 L-D transducer. FINDINGS: Images of the left upper extremity venous system with comparison shot to the right subclavian vein were obtained in both sagittal and transverse planes. Doppler was used to evaluate the veins for spontaneity, phasicity, respiratory excursion, and digital augmentation. RESULTS: Normal venous compression. Normal venous flow. No obvious superficial or deep venous thrombosis noted. INTERPRETATION: Essentially normal left upper extremity venous study. cc: Chon Bowen MD
--- NOTE | 2018-09-02 07:56 | Extremity Venous Study ---
PROCEDURE NAME: Venous U/S Bilateral Legs - 09/01/2018 REQUESTING PHYSICIAN: Dr. Laws. FEED INSPECTION SUPERVISOR: Kristen. INDICATIONS: 1. Edema and pain in legs. 2. History of bilateral thigh fractures. EQUIPMENT: [employer] Vivid E9 ultrasound system with a 9 L-D transducer. FINDINGS: Images of bilateral lower extremity venous systems were obtained in both sagittal and transverse planes. Doppler was used to evaluate veins for spontaneity, phasicity, respiratory excursion, and digital augmentation. RESULTS: Normal venous compression, normal venous flow. No obvious superficial or deep venous thrombosis noted. INTERPRETATION: Essentially normal bilateral lower extremity venous study. cc: Chon Bowen MD
--- NOTE | 2018-09-02 09:18 | ECHO REPORT ---
ORDER DATE: 09/01/2018 INTERPRETING PHYSICIAN: Dr. Gomez CLINICAL INDICATIONS: Patient with hypertension, edema. M-MODE MEASUREMENTS: Left ventricle end diastole: 3.5 cm. Left ventricle end systole: 2.3 cm. Posterior wall: Is not well visualized, is probably 0.6 cm. Interventricular septum: Also appears to be 0.6 cm. Left atrium: 3.0 cm. Aortic root: 2.9 cm. SUMMARY OF 2-DIMENSIONAL IMAGIN. The study is technically difficult. The global left ventricular systolic function is probable preserved estimated at 50% to 55%. There is atypical contractility of the apical portion of the left ventricle. This probably relates to bundle branch block type of abnormality. 2. The right ventricle does not appear to be dilated nor appears to be compressed during diastole. 3. The aortic valve shows calcification of the cusps with restriction of the left coronary cusp. 4. The noncoronary cusp and the right coronary artery cusp appear to open normally. 5. Maximum gradient across the aortic valve is 20 mmHg, mean gradient is 14 mmHg suggesting a trivial degree of stenosis. 6. Pulmonic valve appears to be grossly normal. 7. The mitral valve appears to be grossly unremarkable. The study was difficult and the Doppler signal of the mitral valve is not optimal. 8. The pulse wave Doppler of mitral inflow shows reversal of the E/A ratio 0.7. 9. Tissue Doppler was not carried out. 10.The tricuspid valve shows mild degree of regurgitation. 11.Pulmonary pressure is estimated at 40-45 mmHg. 12.The inferior vena cava is not dilated. 13.There is evidence of a large left pleural effusion, a small pericardial effusion, and evidence of ascites. SUMMARY: This study shows: 1. Overall preserved left ventricular systolic function with atypical contractility of the apex of the left ventricle. 2. Probable trivial degree of aortic stenosis. Mean gradient is 14 mmHg. 3. Cannot comment on diastolic dysfunction. 4. Pulmonary pressure 40-45 mmHg. 5. Large left pleural effusion, evidence of ascites, and a very small pericardial effusion. Clinical correlation is strongly recommended. This study needs to be correlated with a CT scan of the chest and abdomen. cc: Luis Armando Gomez MD
[2018-09-02] MEDS: PRECARE PO SCH (09:22)
[2018-09-02] MEDS: CULTURELLE PO SCH ×2 (09:22→21:52)
[2018-09-02] MEDS: SANTYL OINT TOP SCH (09:25)
[2018-09-02] MEDS ORDERED: COLACE PO PRN (10:42)
[2018-09-02] MEDS: MIRALAX PO SCH (11:26)
[2018-09-02] MEDS: NS 1,000 ML IV SCH (11:27)
--- NOTE | 2018-09-02 12:02 | HEMO/ONC PROGRESS NOTE ---
DATE: 09/02/2018 SUBJECTIVE: Ms. Roberts is propped up in bed this morning, attempting to begin her breakfast. She states that she does not feel good this morning, that she is uncomfortable all over, and feels the need to have a bowel movement although she states she cannot. OBJECTIVE: Vital Signs: Temperature 97.9 degrees, pulse rate 108, respiratory rate 18, blood pressure 120/72, O2 saturation 97% on 2 L via nasal cannula. She states she is in 0/10 pain, to the nursing staff. General: She is an elderly, frail, ill-appearing white female in no acute distress. Cardiovascular: S1, S2 present. Regular rate and rhythm. Respiratory: Lungs clear to auscultation. Normal respiratory effort. Abdomen: Soft, nontender, nondistended. Extremities: 3+ pitting edema in bilateral lower extremities. Left arm also swollen, painful to palpation. Neurologic: Awake, alert, and oriented x3. Able to converse. DIAGNOSTIC DATA: WBC 2.19, hemoglobin 12.1, hematocrit 35.1, platelet count 85,000. ANC 0.36. Creatinine 1.4, BUN 39. Calcium 7.7. She had bilateral venous ultrasounds done yesterday, which showed normal bilateral lower extremity venous studies. ASSESSMENT: 1. Pancytopenia. 2. Recent history of gastrointestinal bleeding. 3. Acute kidney injury. 4. History of myasthenia gravis. PLAN: Since the patient had 2 packed red blood cell transfusion, her hemoglobin and hematocrit have improved. She does have significant leukopenia and neutropenia along with thrombocytopenia. We suspect this is most likely due to bone marrow suppression. We will continue to follow her labs along with you. We will give her Granix today. Azathiprin has been stopped. Continue current management. Dictated by HARDEEP Brooke for Atilio Mccrary MD cc: MD RADHA Medina
[2018-09-02] MEDS ORDERED: PROTONIX PO SCH (13:15)
[2018-09-02] MEDS: MEGACE LIQUID PO SCH (13:20)
[2018-09-02] MEDS ORDERED: MILK OF MAGNESIA PO ONE (14:27)
[2018-09-02] MEDS ORDERED: GRANIX SUBQ ONE (14:27)
--- NOTE | 2018-09-02 14:27 | PROGRESS NOTE ---
DATE: 09/02/2018 Ms. Roberts is awake and alert. She reports being miserable with constipation. Her WBC, hemoglobin, and platelet counts are all slightly improved today. There is nothing new in the chemistry profile with very slight improvement in BUN and creatinine today. Daughter was present again today at the bedside. We reviewed discussion of symptomatic management of myasthenic weakness with pyridostigmine. We reviewed discussion of potential cholinergic GI side effects. Some of this adverse effect was intolerable when she used pyridostigmine in the relatively remote past, and those symptoms were improved with addition of glycopyrrolate. Even though she is constipated now, she still seems reluctant to try pyridostigmine. Since pyridostigmine is purely symptomatic management, I do not think we have to do anything urgently. If constipation does not resolve, we might further consider pyridostigmine. If constipation is not an issue, we can delay pyridostigmine until she is attempting more activity. Thanks for asking Neurology to see Ms. Roberts. cc: MD RADHA Blas III
[2018-09-02] MEDS ORDERED: GLYCERIN ADULT PR ONE (15:05)
[2018-09-02] MEDS ORDERED: DULCOLAX PR ONE (15:05)
--- NOTE | 2018-09-02 15:31 | PROGRESS NOTE ---
DATE: 09/02/2018 INTERVAL HISTORY: Patient complaining of some constipation but otherwise no new complaints. Left elbow slightly less painful. Otherwise, swelling approximately stable. P.o. intake not ideal but somewhat improved. REVIEW OF SYSTEMS: Twelve point review of systems negative except as per interval history. LABS: WBC 2.19, hemoglobin 12.1, hematocrit 35.1, platelets 85,000. Sodium 141, potassium 4.6, chloride 115, bicarb 16, BUN 39, creatinine 1.4, glucose 71. BNP 4,300. B12 1253, folate 3.9. IMAGING: Echocardiogram: Normal EF. Pulmonary pressure 40 to 45. No major valvular issues. Left upper extremity and bilateral lower extremity ultrasounds unremarkable. Elbow x-ray: Soft tissue swelling but no bony abnormality. VITAL SIGNS: T-max 98.2, pulse 76, respirations 16, blood pressure 120/72, O2 saturation 97% on 2 L by nasal. PHYSICAL EXAMINATION: General: No acute distress. Vital signs: As above. HEENT: Normocephalic, atraumatic. Less dry mucous membranes. No cervical adenopathy. Cardiovascular: Regular rate and rhythm. No murmurs, rubs, or gallops. Pulmonary: Clear to auscultation bilaterally. No wheezing, rales, or rhonchi. Abdomen: Soft, nontender, nondistended. Bowel sounds positive. Extremities: Peripheral pulses decreased but intact. There is 3+ lower extremity pitting edema bilaterally, approximately stable. Mild edema in left upper extremity somewhat improved. Left elbow still somewhat edematous but less tender and less erythematous. Neurologic: Speech is slow and stuttering but relatively clear. Cranial nerves otherwise intact. Globally weak. No new focal deficits identified. Psychiatric: Awake, alert, cooperative. Normal mood and affect. Skin: As above. Otherwise, no new rashes or lesions identified. ASSESSMENT AND PLAN: 1. Pancytopenia, etiology not entirely certain. Patient with history of peptic ulcer disease and iron deficiency anemia, but no signs or symptoms of active bleeding on this visit. Fecal occult blood negative. Iron studies not really consistent with deficiency. Suspect drug- induced bone marrow suppression from her Imuran versus primary bone marrow issue. Discussed with Neurology. They are on board with holding her Imuran currently. Still with low white count and platelets, but these are somewhat improved. Markedly improved red blood cell counts after transfusion. Replacing folate as this was also low. Continue to monitor blood counts and see how she does. 2. Likely acute kidney injury. The patient appears to have baseline creatinine of approximately 0.9. Creatinine 1.5 on admission. Down slightly to 1.4 today. Echocardiogram showing no signs of overt heart failure and she appears to be at least intravascularly depleted, so will give some gentle fluids and monitor. 3. Limb edema. I strongly suspect this is related to prolonged poor p.o. intake and profound hypoalbuminemia. Albumin 1.7 on admission. Family does endorse poor p.o. intake for quite some time. Ultrasound negative for DVT and echocardiogram with no evidence of heart failure. Nutrition to follow the patient. 4. Left elbow cellulitis. Appears to be improving with clindamycin. We will continue that. 5. Myasthenia gravis. Patient is stable on Imuran for many years home. Holding currently as it may be contributing to her pancytopenia. Neurology in agreement. May consider pyridostigmine if the patient becomes overtly symptomatic. 6. Constipation. The patient's daughter reports the patient has taken Teeete-Colace daily in the past but not recently. Could have bowel issues related to chronic stimulant laxative use or from her myasthenia. We will try on non-stimulant laxative first but may have to give stimulant laxative or pyridostigmine if constipation continues. 7. Hypothyroidism. Continue home Synthroid. 8. Gastroesophageal reflux disease. Continue PPI. 9. Severe protein calorie malnutrition. Somewhat improved p.o. intake this morning. We will see how she does going forward. Given long history of poor p.o. intake and after discussion with the patient and patient's daughter about risks and benefits, we will start patient on some Megace and see how she does.
--- NOTE | 2018-09-02 15:49 | Diag Imaging Result Doc PS360 ---
EXAM: ABDOMEN FLAT/UPRIGHT 09/02/2018 HISTORY: abdominal pain TECHNIQUE: Flat and upright abdomen COMMENT: There are surgical clips in the pelvis. There is stool in the rectum. There is gas in the remainder of the colon. The stomach and small bowel are not distended. There are postsurgical changes in the proximal femora bilaterally and numerous surgical clips are seen in the upper abdomen. IMPRESSION: Fecal impaction. Electronically signed by Sai Hamlin 09/02/2018 3:47 PM
--- NOTE | 2018-09-02 18:17 | GASTROENTEROLOGY PROGRESS NOTE ---
DATE: 09/02/2018 SUBJECTIVE: Patient is awake. Her daughter is at the bedside. Ms. Roberts is complaining of constipation. She has recently had some MiraLAX without results. She reports abdominal pain today related to constipation. Her hemoglobin and hematocrit have improved. She received 2 units of packed red blood cells. There has been no evidence of active bleeding. She had a Hemoccult test on 08/31/2018 that was negative. She is being followed by Neurology and Hematology. OBJECTIVE: Vital signs: Temperature 97.8 degrees, pulse 138, respirations 23, blood pressure 131/71. General: Patient is awake and alert. She is complaining of abdominal pain related to constipation. She has received MiraLAX. Respiratory: Lung sounds essentially clear. Abdomen: Soft. Some tenderness with palpation. LABORATORY: Hematology: WBC 2.19, hemoglobin 12.1, hematocrit 35.1, MCV 93.9, platelets 85,000. Sodium 141, potassium 4.6, chloride 115, CO2 16, BUN 39, creatinine 1.4, glucose 71. ASSESSMENT AND PLAN: 1. Anemia, improved after 2 units of packed red blood cells. 2. Immunosuppression, possibly related to Imuran. Patient has been seen by Dr. Ibrahim. Her Imuran has been placed on hold. 3. Vitamin deficiency. Continue vitamin. Continue to follow with Dr. Mccrary. 4. Constipation. Patient has been given a dose of MiraLAX. Will give a dose of milk of magnesia today. Continue MiraLAX and Colace as ordered. Further plans will be made according to her response. I have discussed this case with Dr. Dash. Dictated by HARDEEP Nicolas for Jose Dash MD cc: HARDEEP Flores MD
[2018-09-02] MEDS ORDERED: FOLIC ACID PO SCH (21:00)
[2018-09-02] MEDS: TYLENOL PO PRN (21:52)
[2018-09-03] MEDS: CARAFATE LIQUID PO SCH ×6 (01:25→18:12)
[2018-09-03] MEDS: NS 1,000 ML IV SCH ×2 (05:02→12:49)
[2018-09-03] MEDS: CLINDAMYCIN 600 MG/D5W 600 MG/50 ML IVPB IV SCH ×4 (05:04→22:36)
[2018-09-03] MEDS: SYNTHROID PO SCH ×2 (05:46→06:30)
[2018-09-03 07:14] LABS: CALCIUM 7.8 mg/dL (8.8-10.2); CREATININE 1.3 mg/dL (0.5-0.9); POTASSIUM 4.2 mmol/L (3.5-5.1)
[2018-09-03 07:25] LABS: HEMATOCRIT 34.8 % (37.0-47.0); HEMOGLOBIN 11.8 g/dL (12.0-16.0); MCHC 33.9 g/dL (33-37); MCV 94.3 FL (81-99); RBC 3.69 XMIL (4.2-5.4); RDW 18.5 % (11.5-14.5); WBC 2.44 X1000 (4.8-10.8)
[2018-09-03 07:26] LABS: BASO# 0.01 X1000 (0.0-0.2); BASO% 0.4 % (0.0-0.8); EOS# 0.26 X1000 (0.0-0.7); EOS% 10.7 % (0.0-10.0); IMM GRAN# 0.09 X1000 (0.0-0.04); IMM GRAN% 3.7 % (0.0-0.5); LYMPH% 49.2 % (20.5-51.1); MONO# 0.04 X1000 (0.11-0.59); MONO% 1.6 % (1.7-9.3); MPV 11.2 FL (7.4-10.4); NEUT# 0.84 X1000 (1.4-6.5); NEUT% 34.4 % (42.2-75.2); PLT 83 X1000 (130-400)
[2018-09-03] MEDS: MIRALAX PO SCH (09:26)
[2018-09-03] MEDS: MEGACE LIQUID PO SCH (09:26)
[2018-09-03] MEDS: CULTURELLE PO SCH ×2 (09:26→22:36)
[2018-09-03] MEDS: SANTYL OINT TOP SCH (09:27)
[2018-09-03] MEDS: PRECARE PO SCH ×2 (09:28→15:26)
[2018-09-03 09:39] LABS: ANISOCYTOSIS 1+; BANDS 1 % (0-1); BASO 1 % (0-1); EOS 9 % (1-10); LARGE PLATELETS 1+; LYMPHS 52 % (21-51); MONO 1 % (1-9); SEGS 33 % (42-75)
--- NOTE | 2018-09-03 14:14 | PROGRESS NOTE ---
DATE: 09/03/2018 INTERVAL HISTORY: The patient's constipation is significantly improved. She is now having some mild diarrhea. The left elbow is almost completely nonpainful at this point. The leg swelling is approximately the same. Somewhat improved p.o. intake yesterday. No acute events overnight. REVIEW OF SYSTEMS: Twelve point review of systems negative except as per interval history. LABS: WBC 2.4, hemoglobin 11.8, hematocrit 34.8, platelets 83,000. Sodium 143, potassium 4.2, chloride 118, bicarb 18, BUN 40, creatinine 1.3. IMAGING: Abdominal x-ray with fecal compaction. VITALS: T-max 98.2, pulse 78, respirations 19, blood pressure 115/61, O2 saturation 100% on room air. PHYSICAL EXAMINATION: General: No acute distress. Chronically ill-appearing. Vitals: As above. HEENT: Normocephalic, atraumatic. Moist mucous membranes. No cervical adenopathy. Cardiovascular: Regular rate and rhythm. No murmurs, rubs, or gallops. Pulmonary: Clear to auscultation bilaterally. No wheeze, rales, or rhonchi. Abdomen: Soft, nontender, nondistended. Bowel sounds positive. Extremities: Peripheral pulses decreased but intact, still with 3+ lower extremity edema bilaterally. Left upper extremity edema almost resolved. Left elbow still slightly swollen but no further erythema and now nontender. Neurologic: Cranial nerves grossly intact. Some focal weakness but no new focal deficits identified. Psychiatric: Awake, alert, cooperative. Normal mood and affect. Skin: Edema as above. No new rashes or lesions. ASSESSMENT AND PLAN: 1. Pancytopenia. Patient with history of peptic ulcer disease and iron deficiency anemia but no signs or symptoms of bleeding. Fecal occult blood test negative. Iron studies not really consistent with iron deficiency. I suspect drug-induced bone marrow suppression versus primary bone marrow issue. Holding home Imuran, which would be the most likely culprit. Blood counts are still with some leukopenia and thrombocytopenia but these appear to be improving slowly. Markedly improved red blood cell counts after transfusion, roughly stable since then. Replacing folate as this was low. Continue to monitor and see how she does. 2. Likely acute kidney injury. Baseline creatinine appears to be approximately 0.9. Creatinine 1.5 on admission. Improving slowly since then, down to 1.3 today. Continue hydration and monitor. 3. Limb edema. Strongly suspect that this relates to poor oral intake and profound hypoalbuminemia. Albumin 1.7 on admission. Ultrasound negative for deep venous thrombosis. On echocardiogram, no evidence of heart failure. Nutrition following. 4. Left elbow cellulitis appears to be almost resolved. Continue course of clindamycin. 5. Myasthenia gravis. Patient is stable on Imuran for many years at home. Holding currently as it may have been causing her pancytopenia. Neurology in agreement. They recommend considering prostigmin if patient becomes symptomatic. 6. Constipation/rectal impaction. Large bowel movement this morning with Colace and MiraLAX. We will continue with that bowel regimen and consider pyridostigmine if constipation worsens. 7. Hypothyroidism. Continue home Synthroid. 8. Gastroesophageal reflux disease. Continue proton pump inhibitor. 9. Severe protein calorie malnutrition. Oral intake here not perfect but improved. We will see how she does going forward. Started patient on Megace. 10. Disposition. Kidney function and blood counts improving. Impaction appears to be likely resolved. If the patient's blood count and kidney function continue to improve, we may be able to discharge back to rehab in the next 24 to 48 hours.
--- NOTE | 2018-09-03 14:58 | PROGRESS NOTE ---
DATE: 09/03/2018 LOCATION: Room 418 B. SUBJECTIVE: Ms. Roberts continues to be sleeping comfortably. I visited with daughter at the bedside. Ms. Roberts had been awake and alert earlier, chewing and swallowing without difficulty. She has been able to move her limbs. She does not appear to have significant myasthenic weakness at this point. She has had some relief from constipation. I do not have any new suggestion today. We can add pyridostigmine when she is able to be more active. Eventually, we will need to consider other immunosuppressant management for her myasthenia. Her counts are slowly improving, and I do not think we have to change anything urgently from a myasthenia management standpoint. Thank you for asking Neurology to see Ms. Roberts. cc: MD RADHA Blas III
--- NOTE | 2018-09-03 15:50 | HEMO/ONC PROGRESS NOTE ---
DATE: 09/03/2018 SUBJECTIVE: The patient is sitting up in bed, attempting to eat her breakfast. She is awake and alert. She feels better this morning, but she still appears uncomfortable. OBJECTIVE: Vital Signs: Temperature 97.6 degrees, pulse rate 91, respiratory rate 19, blood pressure 117/67, O2 saturation 92% on room air, 0/10 pain. PHYSICAL EXAMINATION: General: Ill appearing elderly woman in no acute distress. Respiratory: Clear to auscultation. No use of accessory muscles. Abdomen: Soft, nontender, nondistended. Cardiovascular: S1, S2 noted. Regular rate and rhythm. Extremities: 3+ pitting edema in bilateral lower extremities. Left arm is also significantly swollen and painful to palpation. Neurological: Alert, oriented x3. Able to converse easily. LABORATORY: WBC 2.44, hemoglobin 11.8, hematocrit 34.8, platelet count 83,000. Calcium 7.8. Yesterday's abdominal x-ray revealed fecal impaction. ASSESSMENT: 1. Pancytopenia. 2. Recent history of gastrointestinal bleeding. 3. Acute kidney injury. 4. History of mastodynia gravis. 5. Fecal impaction. PLAN: The patient's hemoglobin and hematocrit have continued to improve. Her leukopenia is improving as well. The patient is currently off her Imuran. We will continue to follow her labs along with you. Imuran has been stopped. Dictated by HARDEEP Brooke for Atilio Mccrary MD cc: Atilio Mccrary MD MTD
[2018-09-04] MEDS: CLINDAMYCIN 600 MG/D5W 600 MG/50 ML IVPB IV SCH ×3 (05:36→21:10)
[2018-09-04] MEDS: SYNTHROID PO SCH ×2 (05:36→07:41)
[2018-09-04] MEDS: CARAFATE LIQUID PO SCH ×5 (05:36→18:39)
[2018-09-04 06:59] LABS: BASO# 0.01 X1000 (0.0-0.2); BASO% 0.4 % (0.0-0.8); EOS# 0.23 X1000 (0.0-0.7); EOS% 8.2 % (0.0-10.0); HEMATOCRIT 33.7 % (37.0-47.0); HEMOGLOBIN 11.3 g/dL (12.0-16.0); IMM GRAN# 0.06 X1000 (0.0-0.04); IMM GRAN% 2.1 % (0.0-0.5); LYMPH# 1.44 X1000 (1.2-3.4); LYMPH% 51.2 % (20.5-51.1); MCH 31.6 PG (27-31); MCHC 33.5 g/dL (33-37); MCV 94.1 FL (81-99); MONO# 0.04 X1000 (0.11-0.59); MONO% 1.4 % (1.7-9.3); MPV 12.1 FL (7.4-10.4); NEUT# 1.03 X1000 (1.4-6.5); NEUT% 36.7 % (42.2-75.2); PLT 92 X1000 (130-400); RBC 3.58 XMIL (4.2-5.4); RDW 18.4 % (11.5-14.5); WBC 2.81 X1000 (4.8-10.8)
[2018-09-04 07:21] LABS: CALCIUM 7.9 mg/dL (8.8-10.2); CREATININE 1.1 mg/dL (0.5-0.9); POTASSIUM 4.2 mmol/L (3.5-5.1)
[2018-09-04] MEDS: NS 1,000 ML IV SCH ×2 (07:37→21:14)
[2018-09-04] MEDS: MIRALAX PO SCH (08:53)
[2018-09-04] MEDS: MEGACE LIQUID PO SCH (08:54)
[2018-09-04] MEDS: CULTURELLE PO SCH ×2 (08:54→21:10)
[2018-09-04] MEDS: PRECARE PO SCH (08:54)
--- NOTE | 2018-09-04 09:21 | PROGRESS NOTE ---
DATE: 09/04/2018 Ms. Roberts is awake, alert, attentive. She demonstrated good lateral eye movement, good eye closure, good facial motility, good tongue protrusion. She is breathing comfortably. Her only complaint is being "cold." I do not have any new suggestion from neurology standpoint today. Myasthenia management will depend on her clinical course. cc: Munir Ibrahim III, MD
[2018-09-04] MEDS: SANTYL OINT TOP SCH (12:02)
[2018-09-04] MEDS ORDERED: MACROBID PO SCH (13:00)
[2018-09-04] MEDS: INVANZ 1 GM/NS 1 GM/50 ML IVPB IV SCH (15:05)
--- NOTE | 2018-09-04 15:08 | HEMO/ONC PROGRESS NOTE ---
DATE: 09/04/2018 SUBJECTIVE: Ms. Roberts continues to be very weak. She is sitting up in bed slowly, eating her breakfast. She answers questions appropriately. She appears uncomfortable. She denies any pain or complaints. OBJECTIVE: Temperature 98.3 degrees, pulse rate 91, respiratory rate 14, blood pressure 104/69, O2 saturation 96% on room air, she is in 0/10 pain.General: Chronically ill- appearing elderly woman in no acute distress. Appears rather weak. Respiratory: Clear to auscultation. No increased respiratory effort. Cardiac: S1, S2 noted. Regular rate and rhythm. Abdomen: Soft, nontender and nondistended. Appetite good. Extremities: Three plus pitting edema in the bilateral lower extremities. Left arm is improving. Minimal pain with palpation. Neurologic: Alert and oriented x3. Able to converse easily but slowly. LABORATORY DATA: WBC is 2.81, hemoglobin 11.3, hematocrit 33.7, platelet count 92,000, creatinine 1.1, calcium 7.9. ASSESSMENT: 1. Pancytopenia. 2. Recent history of gastrointestinal bleeding. 3. Acute kidney injury. 4. History of myasthenia gravis. PLAN: The patient's hemoglobin and hematocrit have continued to improve as well as her leukopenia. She currently remains off of her Imuran. She is being followed by Neurology. Dr. Ibrahim is considering another immunosuppressive management for her myasthenia gravis when she is able. We will continue to follow along her labs with you. Please call us if needed for anything over the weekend. Dictated by HARDEEP Brooke for Atilio Mccrary MD Patient seen and examined. As above. Pancytopenia slowly improving. No further recommendations at this time. Please call over weekend if needed. Atilio Mccrary M.D. cc: Atilio Mccrary MD [facility]ITAL[facility]igd[facility]
--- NOTE | 2018-09-04 16:17 | PROGRESS NOTE ---
DATE: 09/04/2018 INTERVAL HISTORY: Family reports the patient had some confusion overnight, appears to be resolved now. No other new complaints. No other acute events. REVIEW OF SYSTEMS: Twelve point review of systems negative except as per interval history. LABORATORY DATA: WBC 12.8, hemoglobin 11.3, hematocrit 33.7, platelets 92,000. Sodium 143, potassium 4.2, bicarbonate 19, BUN 35, creatinine 1.1. VITAL SIGNS: Temperature 98.4 degrees, pulse 81, respirations 14, blood pressure 104/69, O2 saturation 96% on 2 L by nasal cannula. PHYSICAL EXAMINATION: General: No acute distress. Vital Signs: As above. HEENT: Normocephalic, atraumatic. Moist mucous membranes. No cervical adenopathy. Cardiovascular: Regular rate and rhythm. No murmurs noted. Pulmonary: Clear to auscultation bilaterally. No wheezing, rales or rhonchi. Abdomen: Soft, nontender and nondistended. Bowel sounds positive. Extremities: Peripheral pulses decreased but intact. Two to 3+ lower extremity edema slightly improved. Left elbow still minimally swollen, but erythema resolved, no further tenderness. Neurologic: Cranial nerves grossly intact. Some global weakness but no new focal deficits identified. Psychiatric: Awake, alert and oriented x3 currently. Cooperative. Normal mood and affect. Skin: Edema as above. No new rashes or lesions. ASSESSMENT AND PLAN: 1. Pancytopenia. Favor drug-induced bone marrow suppression from her Imuran. Counts are improving since this has been held. Remains mildly neutropenic, but white count and platelets improving. Red blood cells stable. Replacing folate as this was low. Monitor. 2. Acute kidney injury. Baseline creatinine appears to be approximately 0.9. Creatinine 1.5 on admission. Improving since then with intravenous fluid down to 1.1 today. Continue monitoring. 3. Possible urinary tract infection. The patient with urine culture growing Escherichia coli. Initially favored asymptomatic bacteriuria as the patient had no fever, no dysuria, no lower abdominal tenderness. However, the patient did have some confusion overnight that could be related to underlying dementia and disruption of her awake sleep schedule, but cannot rule out urinary tract infection affect, so we will start the patient on Invanz for extended-spectrum beta-lactamases Escherichia coli, urinary tract infection. 4. Lymphedema likely related to poor per oral intake and profound hypoalbuminemia/malnutrition. Ultrasound negative for deep venous thrombosis. Echocardiogram negative for heart failure. Nutrition following. 5. Left elbow cellulitis, resolving. Continue clindamycin for now. 6. Myasthenia gravis. The patient is stable on Imuran at home. Holding currently as it is the favored cause of her pancytopenia. Neurology in agreement. We will consider Mestinon if the patient becomes symptomatic. 7. Constipation/rectal impaction now resolved with bowel regimen. Continue bowel regimen and consider pyridostigmine if constipation worsens. 8. Hypothyroidism. Continue with Synthroid. 9. Gastroesophageal reflux disease. Continue proton pump inhibitor. 10. Severe protein calorie malnutrition. Oral intake here somewhat improved since initiation of Megace. Continue to monitor. 11. Disposition. Kidney function near normal. Blood count is improving. Diarrhea resolved. Now with urinary tract infection complicating matter but otherwise near ready for discharge. We will likely have to treat her possible urinary tract infection with at least 5 days of Invanz. Hopefully home early next week. Original plan was to go to rehabilitation but the family now wishes to go home with hospice when ready for discharge.
--- NOTE | 2018-09-04 17:20 | GASTROENTEROLOGY PROGRESS NOTE ---
DATE: 09/04/2018 SUBJECTIVE: At the time of my evaluation, patient was receiving a bath. She is reporting pain all over. There has been no evidence of active GI bleeding. She has had improvement with her constipation and has had several bowel movements. Hemoglobin and hematocrit are stable. OBJECTIVE: Vital signs: Temperature 98.3 degrees, pulse 91, respirations 14, blood pressure 104/69. General: The patient is awake and alert. She is receiving a bath. LABORATORY: Hematology: WBC 2.81, hemoglobin 11.3, hematocrit 33.7, MCV 94.1. Chemistry: Sodium 143, potassium 4.2, chloride 116, CO2 19, BUN 35, creatinine 1.1, glucose 90. ASSESSMENT AND PLAN: 1. Pancytopenia, improving. Patient had fecal occult negative test. No evidence of active bleeding. We will continue to monitor. 2. Constipation, rectal impaction has improved. Continue current laxative regimen. 3. Anemia, stable. Continue to monitor hemoglobin and hematocrit and transfuse further packed red blood cells as needed. 4. Myasthenia gravis. Patient is being followed by Neurology. Arcelia is currently on hold. We will continue to follow with further plans to be made according to her progress. Monitor hemoglobin and hematocrit. Monitor for further active bleeding. Continue laxative regimen. The other GI group will be restaurant operations manager over the weekend. We will follow back on Friday if patient is still in the hospital. I have discussed this case with Dr. Dash. Dictated by HARDEEP Nicolas for Jose Dash MD cc: HARDEEP Flores MD
[2018-09-04] MEDS: MELATONIN PO SCH (21:09)
[2018-09-05] MEDS: TYLENOL PO PRN ×2 (04:52→23:38)
[2018-09-05] MEDS: CLINDAMYCIN 600 MG/D5W 600 MG/50 ML IVPB IV SCH ×3 (06:47→23:39)
[2018-09-05] MEDS: SYNTHROID PO SCH (06:47)
[2018-09-05] MEDS: CARAFATE LIQUID PO SCH ×5 (06:49→23:38)
[2018-09-05] MEDS: MIRALAX PO SCH (08:33)
[2018-09-05] MEDS: MEGACE LIQUID PO SCH (08:34)
[2018-09-05] MEDS: PRECARE PO SCH (08:34)
[2018-09-05] MEDS: CULTURELLE PO SCH ×2 (08:34→23:38)
[2018-09-05] MEDS: NS 1,000 ML IV SCH (08:46)
[2018-09-05 13:12] LABS: AGAP 5; BUN 33 mg/dL (8-22); CALCIUM 8.1 mg/dL (8.8-10.2); CHLORIDE 119 mmol/L (98-107); COSMO 292; CREATININE 0.9 mg/dL (0.5-0.9); ESTIMATED GFR > 60; GLUCOSE 100 mg/dL (70-104); POTASSIUM 3.8 mmol/L (3.5-5.1); SODIUM 143 mmol/L (136-145); TCO2 19 mmol/L (25-35)
[2018-09-05 13:18] LABS: BASO# 0.01 X1000 (0.0-0.2); BASO% 0.4 % (0.0-0.8); EOS% 3.9 % (0.0-10.0); HEMATOCRIT 30.3 % (37.0-47.0); HEMOGLOBIN 10.4 g/dL (12.0-16.0); IMM GRAN# 0.15 X1000 (0.0-0.04); IMM GRAN% 5.9 % (0.0-0.5); LYMPH# 1.21 X1000 (1.2-3.4); LYMPH% 47.6 % (20.5-51.1); MCHC 34.3 g/dL (33-37); MCV 93.2 FL (81-99); MONO# 0.09 X1000 (0.11-0.59); MONO% 3.5 % (1.7-9.3); NEUT# 0.98 X1000 (1.4-6.5); NEUT% 38.7 % (42.2-75.2); PLT 79 X1000 (130-400); RBC 3.25 XMIL (4.2-5.4); WBC 2.54 X1000 (4.8-10.8)
[2018-09-05 13:41] LABS: EOS 4 % (1-10); LYMPHS 51 % (21-51); MONO 5 % (1-9); SEGS 40 % (42-75)
--- NOTE | 2018-09-05 15:50 | PROGRESS NOTE ---
DATE: 09/05/2018 INTERVAL HISTORY: Patient is largely stable. P.o. intake continues to wax and wane. No acute events overnight. No further confusion . REVIEW OF SYSTEMS: Twelve point review of systems negative except as per interval history. LABS: WBC 2.5, hemoglobin 10.4, hematocrit 30.3, platelet 79,000. Basic metabolic panel essentially unremarkable. Creatinine 0.9, bicarb 19 . VITALS: T-max 98.8 degrees, pulse 89, respiration 20, blood pressure 123/79, O2 saturation 95% on room air. PHYSICAL EXAM: General: No acute distress. Vitals as above. HEENT: Normocephalic, atraumatic. Moist membranes. No cervical adenopathy. Cardiovascular: Regular rate and rhythm, no murmurs noted. Pulmonary: Clear to auscultation bilaterally. No wheezing, rales, rhonchi. Abdomen: Soft, nontender, nondistended, bowel sounds positive. Extremities: Peripheral pulses decreased but intact and stable. 2+ lower extremity pitting edema continues to improve slowly. Left elbow minimal swelling stable. Neurologic: Cranial nerves grossly intact, global weakness similar to previous, no new focal deficits. Psychiatric: Awake, alert, oriented x3, cooperative, normal mood and affect. Skin: No new rashes or lesions identified. ASSESSMENT AND PLAN: 1. Pancytopenia initially favored drug-induced bone marrow suppression from her Imuran. Improved for several days after withholding Imuran. Slight downtrend today. Will see what her counts do in the morning but if continue to decrease then may have to look for other explanations. 2. Acute kidney injury now resolved with intravenous fluids. Monitor. 3. Possible urinary tract infection, patient with urine culture growing Escherichia coli initially favor asymptomatic bacteruria then patient developed some confusion which could be related. Patient started on Invanz for extended-spectrum Escherichia coli urinary tract infection today is day 2. 4. Lymphedema. Likely related to poor p.o. intake and profound hypoalbuminemia, ultrasound and echocardiogram largely unremarkable . 5. Left elbow cellulitis almost resolved, 2 days left of clindamycin. 6. Myasthenia gravis patient stable on Imuran home. Holding currently as and it was thought to be contributing to her pancytopenia. Monitor. 7. Constipation/fecal impaction resolved. 8. Hypothyroidism, continue Synthroid. 9. Gastroesophageal reflux disease, continue PPI. 10. Severe protein calorie malnutrition. Oral intake waxes and wanes some but better here than it was at home. Continue protein supplementation and monitor. DISPOSITION: Patient's blood counts were improving but now trending down again also now with ESBL UTI. Will need at least 5 day course of Invanz for UTI and may need further heme-onc workup if her counts continue to worsen again.
[2018-09-05] MEDS: INVANZ 1 GM/NS 1 GM/50 ML IVPB IV SCH (17:59)
[2018-09-05] MEDS: SANTYL OINT TOP SCH (18:45)
[2018-09-05] MEDS: MELATONIN PO SCH (23:38)
[2018-09-06] MEDS ORDERED: CALMOSEPTINE OINTMENT TOP PRN (00:40)
[2018-09-06] MEDS: CARAFATE LIQUID PO SCH ×4 (03:27→23:14)
[2018-09-06] MEDS: CLINDAMYCIN 600 MG/D5W 600 MG/50 ML IVPB IV SCH ×4 (03:28→23:14)
[2018-09-06 06:04] LABS: BASO# 0.01 X1000 (0.0-0.2); BASO% 0.4 % (0.0-0.8); EOS% 8.7 % (0.0-10.0); HEMATOCRIT 33.5 % (37.0-47.0); HEMOGLOBIN 11.2 g/dL (12.0-16.0); IMM GRAN# 0.02 X1000 (0.0-0.04); IMM GRAN% 0.9 % (0.0-0.5); LYMPH# 0.98 X1000 (1.2-3.4); LYMPH% 42.6 % (20.5-51.1); MCH 32.9 PG (27-31); MCHC 33.4 g/dL (33-37); MCV 98.5 FL (81-99); MONO# 0.17 X1000 (0.11-0.59); MONO% 7.4 % (1.7-9.3); MPV 11.6 FL (7.4-10.4); NEUT# 0.92 X1000 (1.4-6.5); PLT 80 X1000 (130-400); RDW 18.6 % (11.5-14.5)
[2018-09-06 06:10] LABS: ESTIMATED GFR > 60
[2018-09-06 06:17] LABS: AGAP 12; BUN 33 mg/dL (8-22); CALCIUM 8.1 mg/dL (8.8-10.2); CHLORIDE 119 mmol/L (98-107); COSMO 296; CREATININE 0.9 mg/dL (0.5-0.9); GLUCOSE 73 mg/dL (70-104); POTASSIUM 3.8 mmol/L (3.5-5.1); SODIUM 146 mmol/L (136-145); TCO2 15 mmol/L (25-35)
[2018-09-06] MEDS: NS 1,000 ML IV SCH (06:17)
[2018-09-06] MEDS: SYNTHROID PO SCH (06:37)
[2018-09-06] MEDS: PRECARE PO SCH (09:06)
[2018-09-06] MEDS: MIRALAX PO SCH (09:06)
[2018-09-06] MEDS: CULTURELLE PO SCH ×2 (09:06→23:15)
[2018-09-06] MEDS: MEGACE LIQUID PO SCH (09:07)
[2018-09-06] MEDS: FOLIC ACID PO SCH ×2 (09:11→23:15)
[2018-09-06] MEDS: SANTYL OINT TOP SCH (09:19)
[2018-09-06 10:26] LABS: URINE SOURCE CATH
[2018-09-06 10:29] LABS: UR EPITHELIAL CELLS <10 /HPF (<10); URINE BACTERIA NEGATIVE /HPF; URINE RBC <10 /HPF (<10); URINE WBC <10 /HPF (<10)
[2018-09-06 10:30] LABS: BILIRUBIN URINE NEGATIVE (NEGATIVE); BLOOD URINE NEGATIVE (NEGATIVE); COLOR YELLOW; GLUCOSE URINE NEGATIVE (NEGATIVE); KETONE URINE NEGATIVE (NEGATIVE); LEUKOCYTES URINE NEGATIVE (NEGATIVE); NITRITE URINE NEGATIVE (NEGATIVE); PH URINE 5.5; PROTEIN URINE 30 mg/dL (NEGATIVE); TURBIDITY URINE CLEAR (CLEAR); UROBILINOGEN URINE NORMAL (NORMAL)
[2018-09-06] MEDS: INVANZ 1 GM/NS 1 GM/50 ML IVPB IV SCH (13:11)
[2018-09-06 14:01] LABS: BLOOD TYPE ARTERIAL; SAMPLE BLOOD
[2018-09-06 14:02] LABS: ALLEN TEST YES; BE -7.3 mmoll (-3.0-3.0); HCO3-(ACT) 19.2 mmoll (20.0-26.0); METHB 0.5 % (0.0-1.5); O2(CT) 13.8 mL/dL (15.0-23.0); O2HB 95.9 % (95.0-99.0); PCO2(98.6) 34 mmHg (35-45); PO2(98.6) 80 mmHg (60-100); THB 10.2 g/dL (11.5-17.4); pH(98.6) 7.33 (7.35-7.45)
[2018-09-06 14:04] LABS: MODALITY CANNULA
--- NOTE | 2018-09-06 14:04 | PROGRESS NOTE ---
DATE: 09/06/2018 INTERVAL HISTORY: No acute events overnight. No new complaints. Remains globally weak. P.o. intake relatively stable. REVIEW OF SYSTEMS: Twelve point review of systems negative except as per interval history. LABS: WBC 2.3, hemoglobin 11.2, hematocrit 33.5, platelets 80,000. Sodium 146, bicarb 15, BUN 33, creatinine 0.9. Urinalysis unremarkable. VITALS: T-max 98.8 degrees, pulse 63, respirations 18, blood pressure 152/93, O2 saturation 97% on 2 L by nasal cannula. PHYSICAL EXAMINATION: General: No acute distress. Vitals: As above. HEENT: Normocephalic, atraumatic. Moist mucous membranes. No cervical adenopathy. Cardiovascular: Regular rate and rhythm. No murmurs noted. Pulmonary: Clear to auscultation bilaterally. No wheezing, rales, or rhonchi. Abdomen: Soft, nontender, nondistended. Bowel sounds positive. Extremities: Peripheral pulses decreased but intact, unchanged from previous. There is 2+ lower extremity edema, improving very slowly. Left elbow swelling almost resolved. No further erythema or tenderness. Neurologic: Cranial nerves grossly intact. Remains globally weak but no new focal deficits. Psychiatric: Asleep but easily arousable. Oriented x3. Cooperative. Skin: No new rashes or lesions identified. ASSESSMENT AND PLAN: 1. Pancytopenia. Initially favored drug induced bone marrow suppression from her Imuran. Improved for several days after withholding Imuran. Red blood cells and platelets relatively stable but some downtrend in WBC over the last couple days. We will see what hematology says but may need to look at further evaluation. 2. Acute kidney injury, now resolved with intravenous fluids. Oral fluid intake reasonable. We will stop intravenous fluids and monitor. 3. Possible urinary tract infection. The patient with urine culture growing extended-spectrum B- lactamase Escherichia coli. Initially favored asymptomatic bacteriuria but then the patient developed some mild confusion so she was started on Invanz. Today is day 3. 4. Lipidemia, likely related to poor oral intake and profound hypoalbuminemia. Ultrasound and echocardiogram largely unremarkable. Improving slowly. 5. Left elbow cellulitis, essentially resolved at this point. One more day of clindamycin. 6. Myasthenia gravis, stable on Imuran at home. Holding currently as it was thought to be contributing to her pancytopenia. Symptoms minimal so far. Monitor. 7. Constipation/fecal impaction, resolved. 8. Hypothyroidism. Continue Synthroid. 9. Gastroesophageal reflux disease. Continue proton pump inhibitor. 10. Severe protein calorie malnutrition. Oral food intact waxes and wanes but better here than it has been at home. Oral fluid intake reasonable. Continue protein supplementation and monitor.
[2018-09-06 16:27] LABS: INR 1.14; PROTIME 15.5 Seconds (11.0-16.0)
[2018-09-06] MEDS: MELATONIN PO SCH (23:14)
[2018-09-07] MEDS: CARAFATE LIQUID PO SCH ×6 (03:05→23:05)
[2018-09-07] MEDS: CLINDAMYCIN 600 MG/D5W 600 MG/50 ML IVPB IV SCH (05:38)
[2018-09-07] MEDS: SYNTHROID PO SCH ×2 (05:39→06:32)
[2018-09-07 07:13] LABS: FREE T4 0.66 ng/dL (0.93-1.70); TSH 11.89 uIUmL (0.27-4.20)
[2018-09-07] MEDS: MIRALAX PO SCH (09:45)
[2018-09-07] MEDS: FOLIC ACID PO SCH ×2 (09:45→23:04)
[2018-09-07] MEDS: MEGACE LIQUID PO SCH (09:45)
[2018-09-07] MEDS: PRECARE PO SCH (09:45)
[2018-09-07] MEDS: CULTURELLE PO SCH ×2 (09:45→23:04)
[2018-09-07] MEDS: SANTYL OINT TOP SCH (09:46)
[2018-09-07 10:58] LABS: EOS% 8.3 % (0.0-10.0); HEMATOCRIT 30.6 % (37.0-47.0); HEMOGLOBIN 10.3 g/dL (12.0-16.0); LYMPH% 47.6 % (20.5-51.1); MCH 31.5 PG (27-31); MCHC 33.7 g/dL (33-37); MCV 93.6 FL (81-99); MONO% 12.1 % (1.7-9.3); MPV 11.1 FL (7.4-10.4); PLT 91 X1000 (130-400); RBC 3.27 XMIL (4.2-5.4); RDW 17.9 % (11.5-14.5); WBC 2.06 X1000 (4.8-10.8)
[2018-09-07 10:59] LABS: EOS# 0.17 X1000 (0.0-0.7); LYMPH# 0.98 X1000 (1.2-3.4); MONO# 0.25 X1000 (0.11-0.59); NEUT# 0.66 X1000 (1.4-6.5)
[2018-09-07 11:07] LABS: EOS 16 % (1-10); LYMPHS 36 % (21-51); MONO 4 % (1-9); SEGS 44 % (42-75)
[2018-09-07 11:13] LABS: AGAP 8; BUN 32 mg/dL (8-22); CALCIUM 8.3 mg/dL (8.8-10.2); CHLORIDE 117 mmol/L (98-107); COSMO 295; CREATININE 0.9 mg/dL (0.5-0.9); ESTIMATED GFR > 60; GLUCOSE 121 mg/dL (70-104); POTASSIUM 3.5 mmol/L (3.5-5.1); SODIUM 144 mmol/L (136-145); TCO2 19 mmol/L (25-35)
[2018-09-07] MEDS ORDERED: GRANIX SUBQ ONE (13:00)
--- NOTE | 2018-09-07 13:04 | HEMO/ONC PROGRESS NOTE ---
DATE: 09/07/2018 SUBJECTIVE: The patient is awake, sitting in bed this morning. She is apparently very cold, staff has the heater on in the room. The patient is underneath several hospital and several blankets from home. She denies any pain. He has no complaints. OBJECTIVE: Vital Signs: Temperature 98.3 degrees, pulse rate 81, respiratory rate 16, blood pressure 112/64, O2 saturation is 97% on nasal cannula at 3 L. She is in 0/10 pain. Respiratory: Clear to auscultation. Cardiovascular: Regular rate and rhythm. S1 and S2 noted. Abdominal: Soft, nontender and nondistended. Extremities: Bilateral lower extremity edema that has been improving slowly. Left elbow swelling is almost resolved. Neurological: Oriented x3. Cooperative. Answers all questions appropriately. ASSESSMENT: 1. Pancytopenia. 2. Recent history of gastrointestinal bleeding. 3. Acute kidney injury. 4. History of myasthenia gravis. PLAN: The patient's hemoglobin and hematocrit have improved and are stable. However, she is neutropenic now. We will order one dose of Neupogen. She generally appears weak. We continued to encourage nutrition including protein shakes as tolerated. We will continue to monitor her white count and intervene as needed. Dictated by HARDEEP Brooke for Atilio Mccrary MD Patient seen and examined. As above. Her hemoglobin and platelet counts are improving. White count continues to be low and she is neutropenic today. Proceed with one more dose of Neupogen. Folate replacement has been started. Continue to monitor. Atilio Mccrary M.D. cc: Atilio Mccrary MD [facility]
[2018-09-07] MEDS ORDERED: NS 250 ML ONE (13:23)
--- NOTE | 2018-09-07 16:22 | PROGRESS NOTE ---
DATE: 09/07/2018 INTERVAL HISTORY: No acute events overnight, but patient is somewhat more somnolent. Somewhat weaker. Her p.o. intake poor today. No increased cough. No abdominal pain, no dysuria. No nausea. REVIEW OF SYSTEMS: A 12-point review of systems is negative except as discussed in Interval History. LABORATORY: WBC 2.06, hemoglobin 10.3, hematocrit 30.6, platelets 91,000. Sodium 144, potassium 3.5, bicarb 19, BUN 32, creatinine 0.9, glucose 121, TSH 11.89, free T4 is 0.6. Repeat urinalysis unremarkable. PHYSICAL EXAMINATION: VITAL SIGNS: T-max 98.1, pulse 77, respiratory rate 14, blood pressure 112/64, O2 sat 96% on 2 L by nasal cannula.General: No acute distress. Vital Signs: As above. HEENT: Normocephalic, atraumatic. Poor dentition. Cardiovascular: Regular rate and rhythm. No murmurs noted. Pulmonary: Clear to auscultation bilaterally. No wheezing, rales or rhonchi. Abdomen: Soft, nontender. Bowel sounds positive. Extremities: Peripheral pulses remain decreased from intact. 2+ lower extremity edema, essentially stable. Left elbow swelling, essentially resolved and without any further edema or tenderness. Neurologic: Cranial nerves grossly intact. Slightly worse global weakness, but no new focal deficits. No spasticity noted. Psychiatric: Asleep, but arousable, somewhat somnolent with repeated stimulation, will arouse enough to answer questions and cooperate. Oriented x 3. Skin: No new rashes or lesions identified. ASSESSMENT AND PLAN: 1. Pancytopenia. Initially favored drug-induced bone marrow suppression from her Imuran. Improved for several days after withholding Imuran. Red blood cells and platelets remain relatively stable, but down trending WBC over the last 2-3 days. Hematology giving the dose of GCSF, but uncertain what the long-term plan is here. 2. Acute kidney injury resolved with IV fluids. Oral intake has been low, but reasonable until today. Decreased today. Currently off fluids, but if p.o. remains poor, may have to restart those. 3. Possible urinary tract infection. Patient with urine culture growing ESBL E coli, initially favored asymptomatic bacteruria, but then patient developed some mild confusion, so we started on Invanz. Tomorrow should be her last day of therapy. Repeat urinalysis yesterday afternoon clean. 4. Lower extremity edema. Likely related to poor oral intake and profound hypoalbuminemia. Ultrasound of legs negative for DVT. Echocardiogram without any evidence of CHF. Somewhat improved from admission. 5. Left elbow cellulitis, resolved. Last day for clindamycin today. 6. Myasthenia gravis, was stable on Imuran at home. Holding currently as it was thought to be contributing to her pancytopenia. Uncertain if this may be contributing to her somnolence and worsening weakness. 7. Discussed with family. They have requested that we ask Dr. Ibrahim to come by again. Will go ahead and give her empiric dose of Mestinon this evening and see what she does. 8. Somnolence, definitely more somnolent today. Given myasthenia history, we will check ABG to make sure she is not getting hypercapnia. Nothing that points towards new infection. Will monitor. 9. Constipation/fecal impaction, resolved. 10. Hypothyroidism. TSH slightly high, free T4 slightly low. Will increase dose Synthroid. Not abnormal and not to be to likely be contributing toward her illness. 11. GERD. Continue PPI. 12. Severe protein calorie malnutrition. Oral intake waxes and wanes. Overall it has been better here than at home, but poor today. Continue protein supplementation and monitor.
[2018-09-07] MEDS: INVANZ 1 GM/NS 1 GM/50 ML IVPB IV SCH (16:32)
[2018-09-07] MEDS: MESTINON PO SCH (16:44)
--- NOTE | 2018-09-07 21:04 | GASTROENTEROLOGY PROGRESS NOTE ---
DATE: 09/07/2018 SUBJECTIVE: Patient is asleep, somewhat weak and lethargic versus last week. Her daughter is at the bedside. Daughter states she is not eating well. She is worried that holding her medications for myasthenia gravis is making her weaker. OBJECTIVE: Vital Signs: Temperature 98.3 degrees, pulse 93, blood pressure 112/64. General: Patient was asleep. She did arouse with stimulus. She is not eating well. LABORATORY: Hematology WBC 2.06, hemoglobin 10.3, hematocrit 30.6, platelet 91,000 coagulation. Sodium 144, potassium 3.5, chloride 117, CO2 19, BUN 32, creatinine 0.9, glucose 121. ASSESSMENT AND PLAN: 1. Rectal bleeding. Has resolved. 2. Fecal impaction/constipation has resolved. Continue laxative regimen. 3. Myasthenia gravis. Her Imuran had been held. Patient's daughter states Dr. Ibrahim was suggesting restarting Mestinon and possible glycopyrrolate for her myasthenia gravis. I have discussed this with Dr. Dash and he is in agreement and we will continue to follow her for symptomatic treatment. Continued medications, PPI. We will continue to follow along and further plans will be made according to her progress. I have discussed this case with Dr. Dash. Dictated by HARDEEP Nicolas for Jose Dash MD cc: HARDEEP Flores MD [facility]
[2018-09-07] MEDS: MELATONIN PO SCH (23:04)
[2018-09-08 04:58] LABS: BE -6.1 mmoll (-3.0-3.0); BLOOD TYPE ARTERIAL; HCO3-(ACT) 20.2 mmoll (20.0-26.0); MODALITY CANNULA; O2(CT) 13.1 mL/dL (15.0-23.0); O2HB 96.2 % (95.0-99.0); PCO2(98.6) 34 mmHg (35-45); PO2(98.6) 77 mmHg (60-100); SAMPLE BLOOD; SAO2 97.5 % (95.0-100.0); THB 9.6 g/dL (11.5-17.4); pH(98.6) 7.35 (7.35-7.45)
[2018-09-08 06:11] LABS: ALLEN TEST YES
[2018-09-08] MEDS: MESTINON PO SCH ×2 (06:33→07:34)
[2018-09-08] MEDS: CARAFATE LIQUID PO SCH ×2 (06:33→07:34)
[2018-09-08] MEDS ORDERED: SYNTHROID PO SCH (07:00)
--- NOTE | 2018-09-08 08:04 | Diag Imaging Result Doc PS360 ---
CHEST-PORTABLE - 09/08/2018 INDICATION: dyspnea COMPARISON: 05/26/2018 FINDINGS: There is a right PICC line in good position with the tip at the cavoatrial junction. There are moderate bibasilar pleural effusions. There are extensive, indeterminate bibasilar infiltrates. IMPRESSION: Significant bilateral infiltrates and effusions. Electronically signed by Clyde Landin 09/08/2018 8:02 AM
[2018-09-08] MEDS: MIRALAX PO SCH (09:06)
[2018-09-08] MEDS: MEGACE LIQUID PO SCH (09:06)
[2018-09-08] MEDS: CULTURELLE PO SCH (09:06)
[2018-09-08] MEDS: FOLIC ACID PO SCH (09:07)
[2018-09-08] MEDS: SANTYL OINT TOP SCH (09:07)
[2018-09-08] MEDS: PRECARE PO SCH (09:54)
[2018-09-08 12:47] VITALS: BP 122/67
--- NOTE | 2018-09-08 15:26 | GASTROENTEROLOGY PROGRESS NOTE ---
DATE: 09/08/2018 SUBJECTIVE: Patient was currently being bathed at that time on my evaluation. I spoke with her daughter. She states they are plans for her to be discharged home today. She was restarted on medication for her myasthenia gravis. There have been no further signs of active bleeding. Her hemoglobin and hematocrit have been stable. OBJECTIVE: Vital Signs: Temperature 97.6 degrees, pulse 95, respirations 22, blood pressure 122/67. ASSESSMENT AND PLAN: 1. Rectal bleeding, resolved. 2. Fecal impaction, constipation resolved. Continue laxative regimen. 3. Myasthenia gravis. Following with Dr. Ibrahim. She has been started back on medication for myasthenia gravis. I recommend to continue PPI. Recommended the daughter follow up with her mother in the office as needed. Will continue to follow during her hospital course and further plans will be made as needed. I believe there are plans for her to be discharged home today or tomorrow. I have discussed this case with Dr. Dash. Dictated by HARDEEP Nicolas for Jose Dash MD cc: HARDEEP Flores MD
--- NOTE | 2018-09-09 05:35 | DISCHARGE SUMMARY ---
ADMISSION DATE: 08/31/2018 DISCHARGE DATE: 09/08/2018 DISCHARGE DIAGNOSES: 1. Pancytopenia, probably related to medications. 2. Acute kidney injury, resolved with intravenous fluids. 3. Extended-spectrum beta-lactamase Escherichia coli urinary tract infection, treated with Invanz. 4. Lower extremity edema. 5. Left elbow cellulitis, resolved. 6. Myasthenia gravis. 7. Constipation, fecal impaction, resolved. 8. Hypothyroidism. 9. Gastroesophageal reflux disease. 10. Severe protein-calorie malnutrition. DISPOSITION: This patient will be discharged home with hospice. PROCEDURES PERFORMED: Elbow x-ray dated 08/31/2018 impression: Soft tissue swelling but no bony abnormality. Extremity venous study dated 09/01/2018 interpretation: Normal left upper extremity venous study. Doppler venous ultrasound of the lower extremities interpretation: Normal bilateral lower extremity venous ultrasound. Echocardiogram dated 09/01/2018 summary: Preserved left ventricular systolic function with atypical contractility in the apex of the left ventricle; probably trivial degree of aortic stenosis; cannot comment on diastolic dysfunction; pulmonary pressure 40 to 45 mmHg; large left pleural effusion; ascites; very small pericardial effusion. Abdomen x-ray dated 09/02/2018 impression: Fecal impaction. Chest x-ray dated 09/08/2018 impression: Significant bilateral infiltrates and effusions. CONSULTS: Hematology/Oncology Department, Dr. Mccrary; Gastroenterology Department, Dr. Dash; Neurology Department, Dr. Ibrahim. HOSPITAL COURSE: This patient has been admitted on 08/31/2018. She is a 78-year-old female who was recently discharged from this hospital on 05/29/2018. During that admission, she was treated for iron-deficiency anemia, GERD and gastric ulcer disease. EGD performed by Dr. Dash was found to have a gastrojejunal ulcer x2, as well as surgical changes suggestive of gastric bypass surgery. It was noted that the ulcer did not have any stigmata of recent bleeding, and there was no evidence of active bleeding. She was given blood transfusion. Her hemoglobin and hematocrit improved. The patient was able to tolerate clear liquid diet and was sent to [facility] for repair of the bilateral femur fractures that occurred from a fall, that sounds to be prior to this admission. She went to rehab at [facility], and it looks like she has been there since. The patient on this admission does not appear to be reporting any complaints other than left elbow pain. She seems to be elderly, weak and frail, but she was alert and oriented to person, place, time and situation. She knew she was in the hospital, but she believed she was in [place] instead of [place]. She was following commands. She denied any headache, dizziness, shortness of breath, cough or chest pain. She denied any abdominal pain, nausea, vomiting or diarrhea. No hematemesis, hematochezia or melena. No dysuria or urinary frequency. She does have bilateral lower extremity edema as well as dependent edema noted all the way up to her back, probably 3 to 4+ pitting edema noted in her bilateral lower extremities, but no erythema has been noted. The left elbow from mid forearm up to the midhumeral area has erythema. There is warmth, pain and tenderness noted, but no vascular lesions noted. Her family members at the bedside state that at the long term she was diagnosed with cellulitis and she has been taking Bactrim for this. Upon evaluation in the ER, the patient was noted, as previously mentioned, to have hemoglobin that was 5.8 on 08/31/2018 at 7:09 a.m., and the hematocrit was 18. Creatinine 1.5, BUN 40 and GFR 34. I believe that this chemistry was previously drawn prior to arrival to the hospital. Hemoccult in the ER was negative for any blood. X-ray did not show any bone abnormality on the left elbow, but tissue swelling. She was admitted. Because of the lower extremity swelling and arm swelling, we asked for venous ultrasound to rule out DVT, and that was negative. Hematology was consulted and they monitored this patient closely. Gastroenterology Department was consulted because of the severe anemia, but like I mentioned before they already did a GI workup and they found ulcers. She was taking Carafate and Protonix, and there has been no active GI bleeding noted. They had planned to repeat an EGD in September. They did not plan to do an EGD at this moment. Neurology Department also was consulted due to her myasthenia gravis. Azathioprine has been stopped due to her pancytopenia. Dr. Ibrahim discussed some alternative immunologic system management options including Soliris and Rituxan, but none of these were thought to be needed to be started urgently. He encouraged the patient to keep an open mind to consider at least trying a low dose of pyridostigmine for symptomatic management. On the other hand, her constipation improved. She was having some diarrhea at some point. She remained really weak but relatively stable. We found out that this patient had an ESBL E. coli and she was treated with Invanz. At the beginning she was asymptomatic, but since this patient became confused she was treated. Palliative Care has been involved. The patient started showing some decline. The patient started to be sleepy, somewhat weak and lethargic compared with the previous week, and apparently she started not to eat well. It looks like she started to decline progressively. Also it looks like the daughter wanted to discuss with the practitioner about placing a PEG tube, but at the end her daughter, Lydia Franco, it looks like decided to go home with comfort care hospice on 09/08/2018. When I evaluated this patient today, everything was set up. She was basically lethargic, having some crackles bilaterally. Like I said, everything was set up for hospice and to go home with hospice. I had a conversation with the daughter at the bedside and this patient has been going through a lot of issues during the past few months including surgeries, and she agreed to take her mother home with hospice. PHYSICAL EXAMINATION: Temperature 97.6 degrees, pulse 95, respiratory rate 22, blood pressure 122/67, oxygen saturation 96% on 2 L of nasal cannula. HEENT: Head normocephalic. No trauma. PERRLA. Neck is supple. No JVD. No masses. Central trachea. Cardiovascular: RRR. Chest: Decreased breath sounds at the bases, with some crackles bilaterally. Abdomen is soft. I do not think it is tender. Bowel sounds present. Extremities: Lower extremity edema 2 to 3+. No clubbing. No cyanosis. A little bit of left elbow swelling, but I do not see any tenderness. Neurological examination: Spasticity noted. This patient is lethargic. I was able to wake her up and she was able to say her name, falling back to sleep immediately. DISCHARGE MEDICATIONS: Hospice care will take care of all the medications. I recommended to continue with acetaminophen 650 p.o. q.6 hours as needed; calcium citrate/vitamin D 2 tablets p.o. b.i.d.; vitamin D3, 10,000 units p.o. b.i.d.; Santyl ointment 1 application topically daily; docusate 100 mg p.o. b.i.d.; folic acid 1 mg p.o. b.i.d.; Culturelle 1 tablet p.o. b.i.d.; levothyroxine 75 mcg p.o. daily; loperamide 2 mg p.o. q.12 hours as needed for diarrhea; Megace liquid 400 mg p.o. daily; melatonin 2 mg p.o. at bedtime; multivitamin 1 tablet p.o. daily; ondansetron 4 mg p.o. q.6 hours as needed; MiraLAX 17 g p.o. b.i.d.; PreCare 1 tablet p.o. daily; Mestinon 60 mg p.o. q.8 hours; Carafate 1 g p.o. q.6 hours; zinc 50 mg p.o. daily. Like I mentioned before, overall this patient is lethargic. She was responding a little bit and falling back down again to sleep immediately. I discussed the case in length with the daughter. Today, even before evaluating this patient, everything was set up to send this patient home with hospice. Family members at the bedside and they agree with that option. I believe it is appropriate. Time discharging this patient was 40 minutes. cc: Vladimir Pearson MD
== END 2018-09-08 13:09 | disposition hospice, home (50) | DRG 808 ==
LOC: SUPCPDRO → ED 16:31 → 3S 22:53 → SUATTDRO 22:53 → 3S 23:22 → 4N 09-02 14:25
PROVIDERS: ATTEND Internal Medicine
CPT/HCPCS: 36430; 36569; 71010; 71045; 73080; 74019; 74020; 80048; 80053; 81001; 82272; 82607; 82728; 82746; 82805; 83540; 83550; 83615; 83880; 84439; 84443; 85014; 85018; 85025; 85045; 85610; 85730; 86850; 86900; 86901; 86920; 87040; 87077; 87088; 87186; 93306; 93970; 93971; 94761; 94799; 96360; 96361; 99285; A9270; C9113; J1335; J1446; J1447; J7030; J7040; J7050; P9016; S0164; S0179